=== PATIENT | male | born 1990 | race Caucasian/White ===

== ENCOUNTER 2023-03-27 10:47 | Outpatient (AMB) | payer OTHER, SELFPAY ==
--- NOTE | 2023-03-27 10:53 | A.OFFPC_ITS ---
Vital Signs 03/27/23 10:59 Height 5 ft 11 in Weight 217 lb BMI 30.3 BP 110/72 Blood Pressure Location Lt brachial Position Sitting Pulse 87 Pulse Source Pulse Oximeter Pulse Oximetry (%) 97 Oxygen Delivery Method Room Air Intake Visit Reasons: New Patient Intake Note: Patient is a new patient here to establish care for Lung issues, Chronic Back and left hip pain, Sleep [place]?, Left knee pain, Skin issues . Transferring care from Dr Ware ([facility]). Medical records have been requested and have received. Requesting for sleep study, lab order, Pulmonary referral. 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: Not Required per policy Accompanied by: Self / Same As Patient Allergies No Known Allergies Allergy (Verified 04/04/23 14:29) Medication List - Last Reconciled 04/04/23 by Bryce Brownlee MD albuterol sulfate 90 mcg/actuation 0 mcg inhalation Tobacco use date assessed: 03/27/23 Dental Screening Dental Screen Date: 03/27/23 Did you have a dental visit in the last 12 months?: Yes Did you have a dental problem in the last 6 months where you did not have access to dental care?: No Was dental information given to patient?: Patient has dentist HPI New Patient HPI Details 32-year-old male presents to the office to discuss his chronic medical conditions. 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 He has multiple complaints. He is transferring his care from the [place]. Patient is having low back pain which is not been resolved for a long time. Pain is present in the lower back. 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 These include muscle relaxants. No urinary incontinence. At times patient is having unexpected spells of cough and shortness of breath. No sputum. He is worried he may have ingested some chemicals during his deployment. Patient also wonders if he has sleep apnea and would like to get a sleep study done. Does report symptoms of fatigue when he wakes up in the morning, restless sleep at night. 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 1. Little interest or pleasure in doing things: not at all 2. Feeling down, depressed, or hopeless: not at all 3. Trouble falling or staying asleep, or sleeping too much: not at all 4. Feeling tired or having little energy: not at all 5. Poor appetite or overeating: not at all 6. Feeling bad about yourself - or that you are a failure or have let yourself or your family down: not at all 7. Trouble concentrating on things, such as reading the newspaper or watching television: not at all 8. Moving or speaking so slowly that other people could have noticed. Or the opposite - being so fidgety or restless that you have been moving around a lot more than usual: not at all 9. Thoughts that you would be better off or of hurting yourself in some way: not at all Total score: 0 Depression Screening Interpretation: Negative Source: Developed by Drs. Lencho Pugh, Janki Anderson, Roger Perez and colleagues, with an educational ronald from [employer]. Thrive Questionnaire Date Thrive assessed: 03/27/23 I am a: Patient What is your living situation today?: I have a steady place to live Within the past 12 months, did the food you bought not last and you didn't have the money to get more?: Never true Within the past 12 months, did you worry whether your food would run out before you got money to buy more?: Never true Do you have trouble paying for medicines?: No Do you have trouble getting transportation to medical appointments?: No Do you have trouble paying your heating and electricity bill?: No Do you have trouble taking care of your child, family member or friend?: No Do you have trouble with day-to-day activities such as bathing, preparing meals, shopping, managing finances, etc.?: Yes (due to hip pain) Are you currently unemployed and looking for a job?: No Are you interested in more education?: No Currently or been in a relationship where the following occur: no concerns reported AUDIT C Alcohol Use Questionnaire (AUDIT-C) 1. How often do you have a drink containing alcohol?: Never Total Score: 0 BRANDEE-7 AMB Questionnaire BRANDEE-7 Date BRANDEE - 7 assessed: 03/27/23 Feeling nervous, anxious, or on edge: 0 = Not at all Not being able to stop or control worryin = Not at all Worrying too much about different things: 0 = Not at all Trouble relaxin = Not at all Being so restless that it is hard to sit still: 0 = Not at all Becoming easily annoyed or irritable: 0 = Not at all Feeling afraid as if something awful might happen: 0 = Not at all Total BRANDEE-7 score (0-4 normal; 5-9 mild; 10-14 moderate; 15-21 severe): 0 Source: Developed by Drs. Lencho Pugh, Janki Anderson, Roger Perez and colleagues, with an educational ronald from [employer]. Physical exam (Primary Care) Vital Signs: Last Vital Signs Pulse 87 03/27/23 10:59 BP 110/72 03/27/23 10:59 Pulse Ox 97 03/27/23 10:59 Oxygen Delivery Method Room Air 03/27/23 10:59 BMI result Body Mass Index 30.3 Tobacco/Smoking Status: Tobacco use Status Tobacco use date assessed 03/27/23 03/27/23 11:10 Patient Tobacco Use Status Current everyday Tobacco 03/27/23 11:10 Tobacco use type Smokeless Tobacco 03/27/23 11:10 e-Cigarette/Vaping Use Never Used 03/27/23 11:10 PHQ-9: PHQ-9 Score PHQ-9: Total score 0 03/27/23 11:10 Depression Screening Interpretation: Negative Thrive Assessment: Date of Thrive Assessment Date Thrive assessed 03/27/23 03/27/23 11:10 Currently or been in a relationship where the following occur: no concerns reported Const General: cooperative, healthy appearing and comfortable HENMO Head: Yes normal to inspection and Yes atraumatic Eyes General: appearance normal, both eyes and all related structures Neck Neck: Yes normal visual inspection and Yes full ROM Chest Chest palpation & inspection: normal inspection of the chest Resp Effort & Inspection: normal respiratory effort Auscultation: clear to auscultation bilaterally Cardio Jugular venous distension: no JVD Palpation: normal PMI Rate: regular rate Heart sounds: S1 normal heart sound present and S2 normal heart sound present GI Palpation (GI): Soft to palpation and No hepatosplenomegaly present Extrem General: Yes normal to inspection and Yes full ROM Assessment and Plan Assessment & Plan (1) Chronic lower back pain: Code(s): M54.50 - Low back pain, unspecified; G89.29 - Other chronic pain Plan: Physical therapy has been requested. Patient is declining to take any medications. (2) Obstructive sleep apnea: Code(s): G47.33 - Obstructive sleep apnea (adult) (pediatric) Plan: A sleep study has been scheduled. (3) Shortness of breath: Code(s): R06.02 - Shortness of breath Plan: Pulmonary consult has been requested. Coding Level of Care Code New Pt Level 4 (51715) Diagnoses Chronic lower back pain M54.50; G89.29 Obstructive sleep apnea G47.33 Shortness of breath R06.02
[2023-03-27 10:59] VITALS: BP 110/72; PULSE 87; O2SAT 97; BMI 30.3
== END 2023-03-27 11:23 | disposition home or self-care (01) ==
PROVIDERS: PCP Internal Medicine; Visit Provider Internal Medicine
DX: M54.50 Low back pain, unspecified (principal); G89.29 Other chronic pain; G47.33 Obstructive sleep apnea (adult) (pediatric); R06.02 Shortness of breath
CPT/HCPCS: 99204

== ENCOUNTER 2023-04-23 14:52 | Outpatient (AMB) | payer OTHER, SELFPAY ==
[2023-04-23 15:07] VITALS: BP 124/78; PULSE 87; O2SAT 97; BMI 30.7
--- NOTE | 2023-04-23 15:07 | A.OFFVIS_ITS ---
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 During his the service, he was [facility] [place] in [place]. He went back and forth from 2007 to 2011 . During his service in [place] he was exposed to lot of, smoke and dust. In year 2012 he was mainly stationed in [place]. Discharge from the service he came back to [facility] in 2012. He also started experiencing shortness of breath on exertion,. He had pulmonary function test a few times through the [facility], the last complete PFT was in 2017. He was told that he has mild obstructive airway disorder. He was prescribed albuterol HFA which he used once. In a while but it did not help much He has continue to experience shortness of breath on any exertion like running or climbing stairs. He claims that with exertion he also has some wheezing. He also has mild nasal congestion but no postnasal drip per sneezing. He is also having chronic back pain, and has had physical treatment, as well as anti-inflammatory meds. He has difficulty in sleeping at night and is being evaluated for sleep apnea, home sleep study scheduled to be done in the neck is 2 weeks. 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 Cognitive needs: No Hearing needs: No Vision needs: No Review of Systems Const All systems reviewed & are unremarkable except as noted in HPI and below Eyes Reports no additional complaints ENT Reports nasal congestion (Mild off and on) Card Denies chest pain, Denies syncope, Denies irregular heart rhythm and Denies leg edema Resp Reports as per HPI GI Reports no additional complaints Reports no additional complaints Musc Reports back pain Skin/Breast Reports system reviewed and no additional complaints, except as documented Neuro Reports no additional complaints and Denies syncope Psych Reports no additional complaints Endo Reports no additional complaints Physical Exam Vital Signs: Last Vital Signs Pulse 87 04/23/23 15:07 BP 124/78 04/23/23 15:07 Pulse Ox 97 04/23/23 15:07 Oxygen Delivery Method Room Air 04/23/23 15:07 BMI result Body Mass Index 30.7 Slightly overweight otherwise looks in good general health Const General: healthy appearing, comfortable, no acute distress, alert and awake Orientation/consciousness: patient oriented x3 HEENT Head: Yes normal to inspection General nose exam: No nasal polyps present and No nasal discharge present Face and sinus: Yes sinuses nontender Mouth: oropharynx normal Throat: Yes posterior oropharynx normal Eyes General: appearance normal, both eyes and all related structures Neck Neck: Yes normal visual inspection, Yes no lymphadenopathy, Yes trachea midline and Yes no JVD Thyroid: Thyroid normal Chest Chest palpation & inspection: normal inspection of the chest, normal palpation of entire chest wall and no tenderness Resp Other: Percussion note is resonant, no wheezes or crepitations are heard. Cardio Palpation: normal PMI Rate: regular rate Rhythm: regular rhythm Heart sounds: no gallops and no murmurs Peripheral pulses: Peripheral pulses 2+ throughout GI Palpation (GI): Soft to palpation, nontender, No hepatosplenomegaly present and no masses Auscultation: normal bowel sounds Back/Spine/Pelvis Thoracic/Lumbar Spine: thoracic and lumbar spine normal to inspection and thoraco-lumbar ROM limited Skin General skin exam: no rashes or lesions noted Neuro General: patient oriented x3 and no focal motor deficits Cranial nerves: Yes CN's II-XII intact bilaterally Extrem General: Yes normal to inspection, Yes no clubbing, cyanosis or edema and Yes no calf tenderness Psych Appearance: grossly normal and well kempt Speech and movement: Normal speech and movement present Results Reviewed Results Reviewed: Records sent from the [facility] outpatient, were reviewed. I did not see report of any pulmonary function test or chest x-ray. Assessment & Plan Assessment & Plan (1) Asthma: Comment: I think he probably has exercise induced bronchial asthma. Trying to get hold of his last PULMONARY FUNCTION TEST, PERFORMED IN 1 OF THE RESPIRATORY LABS IN [facility]. HE IS GOING TO TRY TO GET THE COPY. OF THE REPORT AND DELIVER TO US. IF NOT AVAILABLE THEN I WOULD LIKE TO DO A COMPLETE PULMONARY FUNCTION. TEST HERE IN OUR LAP [place]: STARTED HIM ON A LOW-DOSE OF SYMBICORT 80-4.5 2 PUFFS B.I.D. MAY USE ALBUTEROL HFA 2 PUFFS Q 4-6 HOURS P.R.N. ONLY IF THERE IS SOME WHEEZING. Code(s): J45.909 - Unspecified asthma, uncomplicated Medications: New budesonide-formoterol 80-4.5 mcg/actuation (Symbicort) 2 puffs inhalation Q12H 30 days 10.2 grams 2RF ASTHMA Coding Level of Care Code New Pt Level 4 (03715) Diagnoses Asthma J45.909
== END 2023-04-23 15:50 | disposition home or self-care (01) ==
PROVIDERS: PCP Internal Medicine; Visit Provider Internal Medicine
DX: J45.909 Unspecified asthma, uncomplicated (principal)
CPT/HCPCS: 99204

== ENCOUNTER → 2023-04-23 14:52 | Outpatient (BNVA) | payer OTHER, SELFPAY | PROVIDERS: PCP Internal Medicine; Visit Provider Internal Medicine ==

== ENCOUNTER → 2023-04-29 19:30 | Outpatient (REF) | payer OTHER, SELFPAY | LOC: HO.SL 19:30 | PROVIDERS: PCP Internal Medicine; Visit Provider Internal Medicine | DX: G47.33 Obstructive sleep apnea (adult) (pediatric) (principal) | CPT/HCPCS: 95810 ==

== ENCOUNTER → 2023-04-29 21:43 | Outpatient (BNV) | payer OTHER, SELFPAY | PROVIDERS: PCP Internal Medicine; Visit Provider Internal Medicine | DX: G47.33 Obstructive sleep apnea (adult) (pediatric) (principal) | CPT/HCPCS: 95810 ==

== ENCOUNTER 2023-06-05 10:09 | Outpatient (AMB) | payer OTHER, SELFPAY ==
--- NOTE | 2023-06-05 10:19 | MHC.PC.OV ---
Vital Signs 06/05/23 10:21 Height 5 ft 11 in Weight 220 lb 4 oz BMI 30.7 BP 128/72 Blood Pressure Location Lt brachial Position Sitting Pulse 88 Pulse Source Pulse Oximeter Pulse Oximetry (%) 97 Oxygen Delivery Method Room Air Intake Visit Reasons: 1mth f/u Intake Note: Patient is here to follow up on Asthma. 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 per policy Accompanied by: Self / Same As Patient Allergies No Known Allergies Allergy (Verified 06/10/23 06:25) Medication List - Last Reconciled 06/10/23 by Bryce Brownlee MD albuterol sulfate 90 mcg/actuation 0 mcg inhalation amoxicillin 500 mg PO TID budesonide-formoterol 80-4.5 mcg/actuation (Symbicort) 2 puffs inhalation Q12H 30 days Tobacco use date assessed: 06/05/23 Dental Screening Dental Screen Date: 06/05/23 Did you have a dental visit in the last 12 months?: Yes Did you have a dental problem in the last 6 months where you did not have access to dental care?: No Was dental information given to patient?: Patient has dentist HPI 1mth f/u HPI Details 32-year-old male presents to the office to discuss his chronic medical conditions. He is compliant with medications and reporting no side effects. Able to function and do all activities of daily living. Currently he is only taking the inhaler. His back pain symptoms are under reasonable control without medications. He is continuing to do his stretching exercises. 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 Physical exam (Primary Care) Vital Signs: Last Vital Signs Pulse 88 06/05/23 10:21 BP 128/72 06/05/23 10:21 Pulse Ox 97 06/05/23 10:21 Oxygen Delivery Method Room Air 06/05/23 10:21 Care Plan Goal for BP management: Blood pressure is in range. BMI result Body Mass Index 30.7 Tobacco/Smoking Status: Tobacco use Status Tobacco use date assessed 06/05/23 06/05/23 10:26 Patient Tobacco Use Status Current everyday Tobacco ( 06/05/23 10:26 chewing tobacco) Tobacco use type 06/05/23 10:26 e-Cigarette/Vaping Use Never Used 06/05/23 10:26 Are you ready to quit: No Tobacco cessation counseling provided: No Thrive Assessment: Date of Thrive Assessment Date Thrive assessed 03/27/23 06/05/23 10:26 Const General: cooperative and healthy appearing Nutritional Appearance: well nourished Orientation/consciousness: patient oriented x3 Limitations: no limitations HENMT Head: Yes normal to inspection Eyes General: appearance normal, both eyes and all related structures Neck Neck: Yes normal visual inspection Chest Chest palpation & inspection: normal palpation of entire chest wall Resp Effort & Inspection: normal respiratory effort Neuro General: patient oriented x3 Assessment and Plan Assessment & Plan (1) Tobacco use disorder: Code(s): F17.200 - Nicotine dependence, unspecified, uncomplicated (2) Obstructive sleep apnea: Code(s): G47.33 - Obstructive sleep apnea (adult) (pediatric) Plan: Continue the CPAP. (3) Chronic lower back pain: Code(s): M54.50 - Low back pain, unspecified; G89.29 - Other chronic pain Plan: Condition is stable. Physical therapy if needed. Coding Level of Care Code Est Pt Level 4 (96448) Diagnoses Tobacco use disorder F17.200 Obstructive sleep apnea G47.33 Chronic lower back pain M54.50; G89.29
[2023-06-05 10:21] VITALS: BP 128/72; PULSE 88; O2SAT 97; BMI 30.7
== END 2023-06-05 11:10 | disposition home or self-care (01) ==
PROVIDERS: PCP Internal Medicine; Visit Provider Internal Medicine
DX: F17.200 Nicotine dependence, unspecified, uncomplicated (principal); G47.33 Obstructive sleep apnea (adult) (pediatric); M54.50 Low back pain, unspecified; G89.29 Other chronic pain
CPT/HCPCS: 99214

== ENCOUNTER 2023-06-23 09:16 | Outpatient (AMB) | payer OTHER, SELFPAY ==
[2023-06-23 10:07] VITALS: BP 102/60; PULSE 81; O2SAT 97; BMI 31.7
--- NOTE | 2023-06-23 10:07 | A.OFFVIS_ITS ---
Intake Vital Signs 06/23/23 10:07 Height 5 ft 11 in Weight 227 lb BMI 31.7 BP 102/60 Blood Pressure Location Lt brachial Position Sitting Pulse 81 Pulse Source Pulse Oximeter Pulse Oximetry (%) 97 Oxygen Delivery Method Room Air Intake Visit Reasons: same day pft Intake Note: pt is here for follow up and same pft, inhaler helps only using it prn on bad days. 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 Which is not very frequent However he does get cough and shortness of breath on doing any physical work. He denies. Any nasal congestion or postnasal drip His the shortness of breath and wheezing is mainly related to physical exertion. He does not identify any particular triggers. 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 Cognitive needs: No Hearing needs: No Vision needs: No Review of Systems Const All systems reviewed & are unremarkable except as noted in HPI and below Eyes Reports no additional complaints ENT Reports nasal congestion (Mild off and on) Card Denies chest pain, Denies syncope, Denies irregular heart rhythm and Denies leg edema Resp Reports as per HPI GI Reports no additional complaints Reports no additional complaints Musc Reports back pain Skin/Breast Reports system reviewed and no additional complaints, except as documented Neuro Reports no additional complaints and Denies syncope Psych Reports no additional complaints Endo Reports no additional complaints Physical Exam Vital Signs: Last Vital Signs Pulse 81 06/23/23 10:07 BP 102/60 06/23/23 10:07 Pulse Ox 97 06/23/23 10:07 Oxygen Delivery Method Room Air 06/23/23 10:07 BMI result Body Mass Index 31.7 Slightly overweight otherwise looks in good general health Const General: healthy appearing, comfortable, no acute distress, alert and awake Orientation/consciousness: patient oriented x3 HEENT Head: Yes normal to inspection General nose exam: No nasal polyps present and No nasal discharge present Face and sinus: Yes sinuses nontender Mouth: oropharynx normal Throat: Yes posterior oropharynx normal Eyes General: appearance normal, both eyes and all related structures Neck Neck: Yes normal visual inspection, Yes no lymphadenopathy, Yes trachea midline and Yes no JVD Thyroid: Thyroid normal Chest Chest palpation & inspection: normal inspection of the chest, normal palpation of entire chest wall and no tenderness Resp Other: Percussion note is resonant, no wheezes or crepitations are heard. Cardio Palpation: normal PMI Rate: regular rate Rhythm: regular rhythm Heart sounds: no gallops and no murmurs Peripheral pulses: Peripheral pulses 2+ throughout GI Palpation (GI): Soft to palpation, nontender, No hepatosplenomegaly present and no masses Auscultation: normal bowel sounds Back/Spine/Pelvis Thoracic/Lumbar Spine: thoracic and lumbar spine normal to inspection and thoraco-lumbar ROM limited Skin General skin exam: no rashes or lesions noted Neuro General: patient oriented x3 and no focal motor deficits Cranial nerves: Yes CN's II-XII intact bilaterally Extrem General: Yes normal to inspection, Yes no clubbing, cyanosis or edema and Yes no calf tenderness Psych Appearance: grossly normal and well kempt Speech and movement: Normal speech and movement present Results Reviewed Results Reviewed: Pulmonary function test, shows mild reduction in FEV1 and moderate reduction in FEF 25-75 , with marked improvement after bronchodilators. TLC and DLCO normal, C/W Bronchial asthma Assessment & Plan Assessment & Plan (1) Asthma: Comment: PULMONARY FUNCTION TEST CONFIRMS THAT HE HAS MILD TO MODERATE OBSTRUCTIVE PATTERN WHICH IMPROVES AFTER BRONCHODILATOR THERAPY. THE RESULTS ARE CONSISTENT WITH BRONCHIAL ASTHMA. IN HIS CASE MOST LIKELY BRONCHIAL ASTHMA IS RELATED TO EXERCISE AND, UNSPECIFIED TRIGGER. TX: DISCUSSED WITH HIM IN DETAIL. ADVISE THAT HE SHOULD STAY ON LIGHT DOES SYMBICORT( 80-4.5) 2 PUFFS B.I.D. REGULARLY MAY USE ALBUTEROL HFA 2 PUFFS Q 4-6 HOURS P.R.N. ONLY IF THERE IS SOME WHEEZING. WILL RECHECK IN 4 MONTHS. Code(s): J45.909 - Unspecified asthma, uncomplicated Medications: Refilled budesonide-formoterol 80-4.5 mcg/actuation (Symbicort) 2 puffs inhalation Q12H 30 days 10.2 grams 3RF ASTHMA Coding Level of Care Code Est Pt Level 3 (62287) Diagnoses Asthma J45.909
== END 2023-06-23 10:49 | disposition home or self-care (01) ==
PROVIDERS: PCP Internal Medicine; Visit Provider Internal Medicine
DX: J45.909 Unspecified asthma, uncomplicated (principal)
CPT/HCPCS: 94060; 94727; 94729; 99213

== ENCOUNTER 2023-06-23 09:18 | Outpatient (REF) | payer OTHER, SELFPAY ==
--- NOTE | 2023-06-23 10:06 | PFT_ITS ---
INDICATION: Asthma. SPIROMETRY: FEV1 to FVC of 65% with an FEV1 of 3.61 L, which is 80% predicted and FVC of 5.54 L, which is 99% predicted. Post bronchodilators, there was a significant improvement of the FVC by 19%. The maximum voluntary ventilation 55% predicted. LUNG VOLUMES: Total lung capacity 79% predicted with an expiratory reserve volume of 9% predicted. DIFFUSION CAPACITY: DLCO of 121% predicted. COMPARISONS: None. INTERPRETATION: There is an obstructive ventilatory defect consistent with mild COPD. Likely consistent with asthma COPD overlap syndrome with his history. Does have significant response to bronchodilators noted. Also a moderate decrease in the maximum voluntary ventilation secondary to likely deconditioning, although cannot rule out neuromuscular condition. Lung volumes demonstrate a mild restrictive ventilatory defect consistent with mild restrictive lung disease. There is a normal diffusion capacity. Clinical correlation warranted. MD MARTÍNEZ Ruiz/MODL / [id number]
== END 2023-06-23 09:19 | disposition home or self-care (01) ==
LOC: HO.RESP 09:18
PROVIDERS: PCP Internal Medicine; Visit Provider Internal Medicine
DX: J45.909 Unspecified asthma, uncomplicated (principal)
CPT/HCPCS: 94010; 94727; 94729

== ENCOUNTER 2023-07-04 12:00 | Outpatient (RCR) | payer OTHER, SELFPAY ==
--- NOTE | 2023-05-16 11:46 | MHC.PT.EP ---
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 OBJECTIVE FINDINGS: (+) PELVIC ASYMM W UPPER TRUNK COMPENSATION, TIGHT HIP TISSUES Rt > Lt; DECR STRENGTH / (+) ATROPHY LEFT GLUTE, (+) TISSUE TIGHTNESS IN THORACOLUMBAR PS AND Rt QL MM; AND FLUCTUATING PAIN IN HIS LEFT GLUTE/ SI Jt. FUNCTIONALLY, THE Pt HAS ALTERED HIS FITNESS ROUTINE, DECR SITTING TOLERANCE, AND LEFT LE WEAKNESS W FULL WT BEARING (IE, WHEN HIKING AND STEPPING OVER OBJECTS W RT LE). THE Pt WOULD BENEFIT FROM PT TO ADDRESS THE ABOVE FINDINGS , DEV A HEP/ SELF-SX MGMT PROGRAM, AND IMPROVE HIS FUNCTIONAL INDEPENDENCE. Frequency and Duration: The patient will be seen 2 x WK x 6 WKS Short Term Goals: *Pt'S Lt LS PAIN DECR TO 2-3/10 W REG ADLs *IMPROVE RIGOBERTO HIP FLEXIB *INCR AWARENESS OF LEFT GLUTE COMPLEX W MORE EFFICIENT ACTIV TO PROMOTE PELVIC SYMM *Pt INDEP W POSTURAL SELF-CORRECT IN VARIED POSITIONS *INITIATE HEP Rubber Washer Goals: Pt INDEP W SELF-CORRECT POSTURE AND DEMON IMPROVED, MORE EFFICIENT BODY MECH W SIMUL ADLs/ WORK TASKS *Pt WILL IMPROVE LUMBOPELVIC/ LEs STRENGTH TO AT LEAST 5-/5 *Pt RESUME REG ADLs AND FITNESS ROUTINE EVIDENT W IMPROVED OSWESTRY SCORE (AT EVAL 50 ) *Pt INDEP W PROGR HEP AND SELF-SX MGMT TECHN Treatment Plan: Modalities to reduce pain, spasms and effusion. Manual therapy to restore motion and function. Therapeutic exercise to improve strength and flexibility. Neuromuscular re-education for posture and balance. Therapeutic activities to return to functional activities of daily living. Electronically signed by: KELLEE SMILEY,PT Please sign and return to therapist. Thank you for your referral.
--- NOTE | 2023-08-27 13:28 | MHC.PT.DC ---
[facility] Office [place] Office [place] Office [address] Hallie Nunn [address] [phone] F: [phone] F: [phone] F: [phone] F: [phone] Physical Therapy Discharge Report Diagnosis: CHRONIC LBP INSUR AUTH 90 CONSECUTIVE DAYS Date of Surgery: Date of Evaluation: 05/16/23 Date of Discharge: 08/27/23 Treatments to Date: 8 Cancellations to Date: 2 No Shows to Date: 2 Discharge Status: Improved Function Independent with HEP Recommend MD Follow-up Discharge Summary: RICHARD BENEFITTED FROM PT TO ADDRESS POSTURE, DEV A HEP FOCUSED ON LUMBOPELVIC STAB AND NEUTRAL SPINE . THE Pt WAS CHALLENGED W GLUTE ACTIVATION, ESPEC LEFT HIP COMPLEX. HIS SXS WERE MORE LOCALIZED TO Lt HIP Jt (? LABRAL INVOLVEMENT VS Jt), REDUCED SXS FROM LS ORIGIN-> THE Pt IS GOING TO CONTACT HIS MD RE Lt HIP SXS AND ? ORTHO/ DIAGN. HE IS D/C FROM PT W A THOROUGH HEP. Electronically signed by: KELLEE SMILEY,PT Please sign and return to therapist. Thank you for your referral.
== END 2023-08-27 13:31 | disposition home or self-care (01) ==
LOC: HO.PT 12:00
PROVIDERS: PCP Internal Medicine; Visit Provider Internal Medicine
DX: M54.50 Low back pain, unspecified (principal); G89.29 Other chronic pain
CPT/HCPCS: 97035; 97110; 97140; 97162

== ENCOUNTER 2023-07-24 09:21 | Outpatient (AMB) | payer OTHER, SELFPAY ==
--- NOTE | 2023-07-24 09:56 | MHC.PC.OV ---
Vital Signs 07/24/23 09:58 Height 5 ft 11 in Weight 223 lb 6 oz BMI 31.2 BP 132/74 Blood Pressure Location Lt brachial Position Sitting Pulse 42 L Pulse Source Pulse Oximeter Pulse Oximetry (%) 98 Oxygen Delivery Method Room Air Intake Visit Reasons: Left Hip Pain Intake Note: Patient is here today for left hip pain. Requesting for order for MRI Customer Contact Sales Associate Required: No Aluminum Pourer: Not Required per policy Accompanied by: Self / Same As Patient Allergies No Known Allergies Allergy (Verified 07/24/23 09:57) Tobacco use date assessed: 07/24/23 Dental Screening Dental Screen Date: 07/24/23 Did you have a dental visit in the last 12 months?: Yes Did you have a dental problem in the last 6 months where you did not have access to dental care?: No Was dental information given to patient?: Patient has dentist HPI Left Hip Pain HPI Details 33-year-old male presents to the office to discuss his chronic medical conditions. Patient continues to have left hip pain. Physical therapy has not relieved any of the symptoms. Pain is around the greater trochanter area and encircling it. He is able to walk and bear weight without any difficulty. The pain is constant with no relieving factors. 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 Lencho Pugh, Janki Anderson, Roger Perez and colleagues, with an educational ronald from [employer]. Physical exam (Primary Care) Vital Signs: Last Vital Signs Pulse 42 L 07/24/23 09:58 BP 132/74 07/24/23 09:58 Pulse Ox 98 07/24/23 09:58 Oxygen Delivery Method Room Air 07/24/23 09:58 BMI result Body Mass Index 31.2 Tobacco/Smoking Status: Tobacco use Status Tobacco use date assessed 07/24/23 07/24/23 10:08 Patient Tobacco Use Status Current everyday Tobacco ( 07/24/23 09:56 chewing tobacco) Tobacco use type 06/05/23 15:19 e-Cigarette/Vaping Use Never Used 07/24/23 09:56 Thrive Assessment: Date of Thrive Assessment Date Thrive assessed 03/27/23 07/24/23 09:56 Const General: cooperative and healthy appearing Nutritional Appearance: well nourished Orientation/consciousness: patient oriented x3 Limitations: no limitations HENMT Head: Yes normal to inspection Eyes General: appearance normal, both eyes and all related structures Neck Neck: Yes normal visual inspection Chest Chest palpation & inspection: normal palpation of entire chest wall Resp Effort & Inspection: normal respiratory effort Neuro General: patient oriented x3 Extrem Other: Left hip: Pain and tenderness over the greater trochanter. Full range of motion at the hip including abduction and adduction. Assessment and Plan Assessment & Plan (1) Osteoarthritis of left hip: Code(s): M16.12 - Unilateral primary osteoarthritis, left hip Plan: Patient is having unrelenting pain in the left hip. This is affecting his quality of life. An MRI of the hip is necessary to study the articulation and the nature of the greater trochanter. Order has been placed. Orders: Orders MR hip LT w con 07/24/23 M16.9 - Osteoarthritis of hip, unspecified Coding Level of Care Code Est Pt Level 4 (17376) Diagnoses Osteoarthritis of left hip M16.12
[2023-07-24 09:58] VITALS: BP 132/74; PULSE 42; O2SAT 98; BMI 31.2
== END 2023-07-24 10:32 | disposition home or self-care (01) ==
PROVIDERS: PCP Internal Medicine; Visit Provider Internal Medicine
DX: M16.12 Unilateral primary osteoarthritis, left hip (principal)
CPT/HCPCS: 99214

== ENCOUNTER 2023-10-22 10:39 | Outpatient (REF) | payer OTHER, SELFPAY ==
--- NOTE | ~2023-10-22 | XR_ITS ---
EXAMINATION: XR HIP, LEFT CLINICAL INFORMATION: Unilateral primary osteoarthritis, left hip COMPARISON: None available. TECHNIQUE: Two views of the left hip. FINDINGS: No fracture. Alignment is anatomic. Hip joint space is maintained. Soft tissues are unremarkable. XR/XR hip LT min 2V IMPRESSION: No bony abnormality.
== END 2023-10-22 10:40 | disposition home or self-care (01) ==
LOC: HO.XRAY 10:39
PROVIDERS: PCP Internal Medicine; Visit Provider Internal Medicine
DX: M16.12 Unilateral primary osteoarthritis, left hip (principal)
CPT/HCPCS: 73502

== ENCOUNTER 2024-12-07 09:31 | Outpatient (REF) | payer OTHER, SELFPAY ==
--- NOTE | ~2024-12-07 | XR_ITS ---
EXAMINATION: XR CHEST 2 VIEWS HISTORY: J45.909 - Unspecified asthma, uncomplicated COMPARISON: There are no prior studies for comparison. FINDINGS: PA and lateral views of the chest are submitted. The lungs are expanded and clear. There is no pleural effusion, pneumothorax, or pulmonary vascular congestion. The heart is normal in size. The bones are intact. XR/XR chest 2V IMPRESSION: Normal examination of the chest. Electronically signed by: Lencho Canseco MD 12/07/2024 03:32 PM EDT
[2024-12-07 10:31] LABS: MANUAL DIFF FLAG NO
[2024-12-07 10:46] LABS: Basophils Absolute Auto 0.1 X10*3/uL (0.0-0.2); Basophils Percent Auto 0.9 % (0-2); Eosinophils Absolute Auto 0.1 X10*3/uL (0.0-0.4); Eosinophils Percent Auto 1.5 % (0-4); Hematocrit 46.7 % (42.0-52.0); Hemoglobin 16.6 g/dl (14.0-18.0); Imm Gran Abs Auto 0.02 X10*3/uL (0.00-0.03); Imm Gran Pct Auto 0.3 % (0.0-0.4); Lymphocytes Absolute Auto 1.9 X10*3/uL (1.2-4.9); Lymphocytes Percent Auto 33.2 % (20-40); Mean Corpuscular HGB Conc 35.5 g/dl (31.0-36.0); Mean Corpuscular Hemoglobin 29.3 pg (27.0-33.0); Mean Corpuscular Volume 82.5 fL (80.0-98.0); Mean Platelet Volume 10.8 fL (9.4-12.4); Monocytes Absolute Auto 0.4 X10*3/uL (0.1-1.2); Monocytes Percent Auto 7.6 % (2-11); Neutrophils Absolute Auto 3.3 x10*3/uL (2.0-8.3); Neutrophils Percent Auto 56.5 % (45-73); Platelet Count 144 X10*3/uL (160-400); Red Blood Count 5.66 X10*6/uL (4.60-5.80); Red Cell Distribution Width 12.6 % (11.0-16.0); White Blood Count 5.8 X10*3/uL (4.8-10.8)
[2024-12-08 07:38] LABS: Immunoglobulin E 14 kU/L (<OR=114)
== END 2024-12-07 09:32 | disposition home or self-care (01) ==
LOC: HO.XRAY 09:31
PROVIDERS: PCP Internal Medicine; Referring Provider Internal Medicine; Visit Provider Internal Medicine
DX: J45.909 Unspecified asthma, uncomplicated (principal)
CPT/HCPCS: 36415; 71046; 82785; 85025; 94010

== ENCOUNTER 2024-12-07 09:31 | Outpatient (AMB) | payer OTHER, SELFPAY ==
[2024-12-07 09:35] VITALS: BP 122/82; PULSE 80; O2SAT 100; BMI 32.3
--- NOTE | 2024-12-07 09:35 | A.OFFVIS_ITS ---
Vital Signs 12/07/24 09:35 Height 5 ft 11 in Weight 231 lb 7.766 oz BMI 32.3 BP 122/82 Blood Pressure Location Lt brachial Position Sitting Pulse 80 Pulse Source Pulse Oximeter Pulse Oximetry (%) 100 Oxygen Delivery Method Room Air Intake Visit Reasons: Shortness of breath Intake Note: pt is here for short of breath mostly with exertion, wheezing, and even using both inhalers with no difference. 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 He responded very well to Symbicort 80-4.52 puffs b.i.d. and albuterol only p.r.n.. Subsequently Symbicort has been changed to Wixela by the [place] outpatient, and the doses actually 500-50 1 inhalation b.i.d.. He does not like to use Wixela, he prefers to go back to Symbicort. He denies any sudden attacks of wheezing. But when he is at work and has run climb stairs he gets short of breath. This is affecting his. job to some extent He has had no respiratory infection, He does not smoke. Has very little cough or expectoration. 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 Cognitive needs: No Hearing needs: No Vision needs: No Review of Systems Const All systems reviewed & are unremarkable except as noted in HPI and below Eyes Reports no additional complaints ENT Reports nasal congestion (Mild off and on) Card Denies chest pain, Denies syncope, Denies irregular heart rhythm and Denies leg edema Resp Reports as per HPI GI Reports no additional complaints Reports no additional complaints Musc Reports back pain Skin/Breast Reports system reviewed and no additional complaints, except as documented Neuro Reports no additional complaints and Denies syncope Psych Reports no additional complaints Endo Reports no additional complaints Physical Exam Vital Signs: Last Vital Signs Pulse 80 12/07/24 09:35 BP 122/82 12/07/24 09:35 Pulse Ox 100 12/07/24 09:35 Oxygen Delivery Method Room Air 12/07/24 09:35 BMI result Body Mass Index 32.3 Slightly overweight otherwise looks in good general health Const General: healthy appearing, comfortable, no acute distress, alert and awake Orientation/consciousness: patient oriented x3 HEENT Head: Yes normal to inspection General nose exam: No nasal polyps present and No nasal discharge present Face and sinus: Yes sinuses nontender Mouth: oropharynx normal Throat: Yes posterior oropharynx normal Eyes General: appearance normal, both eyes and all related structures Neck Neck: Yes normal visual inspection, Yes no lymphadenopathy, Yes trachea midline and Yes no JVD Thyroid: Thyroid normal Chest Chest palpation & inspection: normal inspection of the chest, normal palpation of entire chest wall and no tenderness Resp Other: Percussion note is resonant, no wheezes or crepitations are heard. Cardio Palpation: normal PMI Rate: regular rate Rhythm: regular rhythm Heart sounds: no gallops and no murmurs Peripheral pulses: Peripheral pulses 2+ throughout GI Palpation (GI): Soft to palpation, nontender, No hepatosplenomegaly present and no masses Auscultation: normal bowel sounds Back/Spine/Pelvis Thoracic/Lumbar Spine: thoracic and lumbar spine normal to inspection and thoraco-lumbar ROM limited Skin General skin exam: no rashes or lesions noted Neuro General: patient oriented x3 and no focal motor deficits Cranial nerves: Yes CN's II-XII intact bilaterally Extrem General: Yes normal to inspection, Yes no clubbing, cyanosis or edema and Yes no calf tenderness Psych Appearance: grossly normal and well kempt Speech and movement: Normal speech and movement present Office Procedures Spirometry Testing Spirometry Comments: Spirometry done in the offic, Dr. Carbajal has the results results scanned to his chart. 02083- Spirometry Results Reviewed Results Reviewed: SPIROMETRY 2022 FVC = 89 % 92 % FEV1= 70 % 67 % FEF 25-75 = 44 % 36 % Assessment & Plan Assessment & Plan (1) Asthma: Comment: PULMONARY FUNCTION TEST IN 2022 CONFIRMED THAT HE HAS MILD TO MODERATE OBSTRUCTIVE PATTERN WHICH IMPROVES AFTER BRONCHODILATOR THERAPY. THE RESULTS WERE CONSISTENT WITH BRONCHIAL ASTHMA. IN HIS CASE MOST LIKELY BRONCHIAL ASTHMA IS RELATED TO EXERCISE AND, UNSPECIFIED TRIGGERS. Code(s): J45.909 - Unspecified asthma, uncomplicated Category: Medical Plan: TX: DISCUSSED WITH HIM IN DETAIL. HE DOES NEED TO STAY ON A GOOD MAINTENANCE REGIMEN. I WOULD START HIM BACK ON GENERIC SYMBICORT ( BUDESONIDE -FORM ) 160- 4.52 PUFFS B.I.D. 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 A CHEST X-RAY IS ORDERED A BASELINE, TO MAKE SURE THAT HE DOES NOT HAVE ANY PARENCHYMAL LUNG .DISEASE Orders: Orders AMB Spirometry Testing Today J45.909 - Unspecified asthma, uncomplicated Complete Blood Count Auto Diff Today J45.909 - Unspecified asthma, uncomplicated Immunoglobulin E Today J45.909 - Unspecified asthma, uncomplicated XR chest 2V Today J45.909 - Unspecified asthma, uncomplicated Medications: New budesonide-formoterol 160-4.5 mcg/actuation 2 puffs inhalation BID 30 days 10.2 grams 4RF ASTHMA tiotropium bromide 2.5 mcg/actuation (Spiriva Respimat) 2 puffs inhalation QAM 4 grams 4RF ASTHMA/COPD 30 days tiotropium bromide 2.5 mcg/actuation (Spiriva Respimat) 2 puffs inhalation QAM 30 days 4 grams 4RF ASTHMA/COPD budesonide-formoterol 160-4.5 mcg/actuation 2 puffs inhalation BID 10.2 grams 4RF ASTHMA 30 days Coding Level of Care Code Est Pt Level 3 (14781) Diagnoses Asthma J45.909 CPT Codes Spirometry - CPT: 03984- Spirometry ([id number])
--- OUTSIDE RECORDS SUMMARY | 2024-12-07 10:23 | XMS_ITS | Continuity of Care Document ---
Author Name [facility] Organization [facility] Care Team Providers Care Senior Quality Methods Specialist Name Role Phone DOD-MI Unavailable Unavailable Problems Combined list of problems from Department of Defense and Veterans Affairs facilities. It does not include entries that were removed or entered in error. Problem Status Onset Date Problem Type Date of Resolution Comments Source Bronchial asthma Active Condition [facility] Exposure to potentially hazardous substance Active Condition Nov 12, 2023 Entered By: ANDREEA GAFFNEY Comment: connect JERRY Snomed Code to ICD 10 Code [facility]15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 s/p IR ablation on 03/01/[address] [facility] Spondylolisthesis Active Condition [facility] Diagnosis: ICD-10-CM G47.30 Sleep apnea, unspecified Active Diagnosis [facility] ([id number]) Diagnosis: ICD-10-CM F43.9 Reaction to severe stress, unspecified Active Diagnosis [facility] Diagnosis: ICD-10-CM F41.9 Anxiety disorder, unspecified Active Diagnosis [facility] Diagnosis: ICD-10-CM F17.200 Nicotine dependence, unspecified, uncomplicated Active Diagnosis [facility] Diagnosis: ICD-10-CM H16.143 Punctate keratitis, bilateral Active Diagnosis [facility] [place] [facility] Diagnosis: ICD-10-CM Z71.89 Other specified counseling Active Diagnosis [facility] [place] [facility] Diagnosis: ICD-10-CM Z51.81 Encounter for therapeutic drug level monitoring Active Diagnosis [facility] Diagnosis: ICD-10-CM J45.998 Other asthma Active Diagnosis [facility] [place] [place] [facility] Diagnosis: ICD-10-CM M25.552 Pain in left hip [facility] Medications Combined list of outpatient medications from Department of Defense and Veterans [facility] facilities.Medications provided include 1) outpatient medications from the last 15 months, and 2) patient-reported medications. Medication Details Route Status Patient Instructions Prescription Expires Prescription Number Last Dispense Date Ordering Provider Order Date Order Qty Source ALBUTEROL 90MCG/ACTUA T (CFC-F) INHL,ORAL,8 .5GM DOSE COUNTER INHALE 2 PUFFS BY MOUTH EVERY 6 HOURS NEEDED FOR [facility]ON[place] RESPIR ATORY (INHAL ATION) 10/15/2024 [id number] [facility] FLUTICASONE 500MCG/SALM ETEROL 50MCG INHL,ORAL,D ISKUS,60 INHALE 1 PUFF BY MOUTH TWICE DAILY - RINSE MOUTH AFTER USE RESPIR ATORY (INHAL ATION) 10/15/2024 [id number] 4 [facility] HYPROMELLOS E 0.3% GEL,OPH APPLY 1 TO 2 DROPS INTO THE LEFT EYE AT BEDTIME OPHTHA LMIC 07/08/2024 [id number] Jayda WILSON 2023 [facility] PEG-400 0.4%/PROPYL EDILBERTO GLYCOL 0.3% SOLN,OPH INSTILL 1 DROP INTO THE LEFT EYE FOUR TIMES A DAY FOR DRY EYE OPHTHA LMIC ACTIVE 06/09/2025 [id number] Jayda WILSON 2023 15 [place] [facility] [place] [facility] Allergies, Adverse Reactions, Alerts Combined list of allergies from Department of Defense and Veterans Affairs facilities. It does not include entries that were removed or entered in error. Substance Category Reaction Severity Reaction type Status Date Reported Comments Source POISON NILAM Propensity to adverse reaction (finding) Itching active 9 [facility] [place] [facility] Immunizations Combined list of available immunizations from the Department of Defense and Veterans Affairs facilities. Immunization Series Date Given Administered By Site Reaction Lot Number CVX Code Drug Data Integrity Specialist Status Comments Source COVID-19 (MODERNA), MRNA, LNP-S, PF, 100 MCG/0.5 ML DOSE 2 2020 207 complet ed [facility] COVID-19 (MODERNA), MRNA, LNP-S, PF, 100 MCG/0.5 ML DOSE 1 2020 207 complet ed [facility] INFLUENZA, UNSPECIFIED FORMULATION 2019 88 complet ed [facility] INFLUENZA, INJECTABLE, QUADRIVALENT, PRESERVATIVE FREE 2018 150 complet ed Site: Right Deltoid [facility] PNEUMOCOCCAL POLYSACCHARID E PPV23 2016 33 complet ed [facility] DTAP 2016 20 complet ed Site: Left Deltoid [facility] HPV, QUADRIVALENT 2013 62 complet ed # 3 OF 3; #1 AND #2 RECEIVED WHILE IN [facility] HPV, UNSPECIFIED FORMULATION 2013 137 complet ed [facility] TD(ADULT) UNSPECIFIED FORMULATION 2008 139 complet ed [place] [facility] [place] [facility] Results Combined list of recent chemistry, hematology and other laboratory results from Department of Defense and Veterans Affairs, ranging from 15 months to all on record, depending upon the facility. Order Name Results Value Reference Range Date Interpretation Specimen Comments Source PTT APTT IN PLATELET POOR PLASMA BY COAGULATIO N ASSAY 34.2 s 26.0 - 36.0 01/14 Specimen Type: PLASMA No comment entered. Ordering Provider: JIM KIM Report Released Date/Time: Jan 15, 2024 10:27 AM Reporting Lab: [facility] [place] [facility] [address] [facility] [address] Performing Lab: [facility] [address] [facility] [address] [facility] [place] [facility] PT & INR (PROTIME ) INR IN PLATELET POOR PLASMA BY COAGULATIO N ASSAY 1.1 01/14 Specimen Type: PLASMA No comment entered. Ordering Provider: JIM KIM Report Released Date/Time: Jan 15, 2024 10:27 AM Reporting Lab: [facility] [place] [facility] [address] [facility] [address] Performing Lab: [place] [facility] [place] [facility] [address] [facility] [address] [facility] [place] [facility] PT & INR (PROTIME ) PROTHROMBI N TIME (PT) 12.2 s 10.0 - 13.1 01/14 Specimen Type: PLASMA No comment entered. Ordering Provider: JIM KIM Report Released Date/Time: Jan 15, 2024 10:27 AM Reporting Lab: [facility] [place] [facility] [address] [facility] [address] Performing Lab: [facility] [place] [facility] [address] [facility] [address] [place] [facility] [place] [facility] CBC AND DIFF (AUTO) LEUKOCYTES [#/VOLUME] IN BLOOD BY AUTOMATED COUNT 5.83 10*3/uL 4.50 - 11.00 01/14 Specimen Type: BLOOD No comment entered. Ordering Provider: JIM KIM Report Released Date/Time: Jan 15, 2024 10:27 AM Reporting Lab: [facility] [place] [facility] [address] [facility] [address] Performing Lab: [facility] [place] [address] [address] [place] [facility] [place] [facility] CBC AND DIFF (AUTO) ERYTHROCYT ES [#/VOLUME] IN BLOOD BY AUTOMATED COUNT 5.50 10*6/uL 4.23 - 5.66 01/14 Specimen Type: BLOOD No comment entered. Ordering Provider: JIM KIM Report Released Date/Time: Jan 15, 2024 10:27 AM Reporting Lab: [facility] [place] [facility] [address] [facility] [address] Performing Lab: [facility] [place] [facility] [address] [facility] [address] [facility] [place] [facility] CBC AND DIFF (AUTO) HEMOGLOBIN [MASS/VOLU ME] IN BLOOD 16.1 g/dL 12.8 - 17 01/14 Specimen Type: BLOOD No comment entered. Ordering Provider: JIM KIM Report Released Date/Time: Jan 15, 2024 10:27 AM Reporting Lab: [facility] [place] [facility] [address] [facility] [address] Performing Lab: [facility] [place] [address] [address] [place] [facility] [place] [place] [facility] CBC AND DIFF (AUTO) HEMATOCRIT [VOLUME FRACTION] OF BLOOD BY AUTOMATED COUNT 45.8 39.2 - 50.4 01/14 Specimen Type: BLOOD No comment entered. Ordering Provider: JIM KIM Report Released Date/Time: Jan 15, 2024 10:27 AM Reporting Lab: [facility] [place] [facility] [address] [facility] [address] Performing Lab: [facility] [place] [facility] [address] [facility] [address] [facility] [place] [facility] CBC AND DIFF (AUTO) MCV [ENTITIC VOLUME] BY AUTOMATED COUNT 83.3 fL 82 - 99 01/14 Specimen Type: BLOOD No comment entered. Ordering Provider: JIM KIM Report Released Date/Time: Jan 15, 2024 10:27 AM Reporting Lab: [facility] [place] [facility] [address] [facility] [address] Performing Lab: [facility] [place] [address] [address] [facility] CBC AND DIFF (AUTO) MCHC [MASS/VOLU ME] BY AUTOMATED COUNT 35.2 g/dL 30.8 - 35.1 01/14 H Specimen Type: BLOOD No comment entered. Ordering Provider: JIM KIM Report Released Date/Time: Jan 15, 2024 10:27 AM Reporting Lab: [facility] [place] [facility] [address] [facility] [address] Performing Lab: [facility] [place] [facility] [address] [facility] [address] [facility] [place] [facility] CBC AND DIFF (AUTO) PLATELETS [#/VOLUME] IN BLOOD BY AUTOMATED COUNT 150 10*3/uL 140 - 360 01/14 Specimen Type: BLOOD No comment entered. Ordering Provider: JIM KIM Report Released Date/Time: Jan 15, 2024 10:27 AM Reporting Lab: [facility] [place] [address] [address] Performing Lab: [place] [facility] [place] [address] [address] [facility] [place] [facility] CBC AND DIFF (AUTO) ERYTHROCYT E DISTRIBUTI ON WIDTH [RATIO] BY AUTOMATED COUNT 12.6 12.0 - 16.0 01/14 Specimen Type: BLOOD No comment entered. Ordering Provider: JIM KIM Report Released Date/Time: Jan 15, 2024 10:27 AM Reporting Lab: [facility] [place] [address] [address] Performing Lab: [facility] [place] [facility] [address] [facility] [address] [facility] [place] [facility] CBC AND DIFF (AUTO) MONOCYTES [#/VOLUME] IN BLOOD BY AUTOMATED COUNT 0.39 10*3/uL 0.30 - 1.10 01/14 Specimen Type: BLOOD No comment entered. Ordering Provider: JIM KIM Report Released Date/Time: Jan 15, 2024 10:27 AM Reporting Lab: [facility] [place] [address] [address] Performing Lab: [facility] [address] [facility] [address] [facility] [place] CBC AND DIFF (AUTO) MCH [ENTITIC MASS] BY AUTOMATED COUNT 29.3 pg 26.2 - 32.6 01/14 Specimen Type: BLOOD No comment entered. Ordering Provider: JIM KIM Report Released Date/Time: Jan 15, 2024 10:27 AM Reporting Lab: [facility] [address] [facility] [address] Performing Lab: [facility] [address] [facility] [address] [facility] [place] [facility] CBC AND DIFF (AUTO) NEUTROPHIL S/100 LEUKOCYTES IN BLOOD BY AUTOMATED COUNT 53.1 43.7 - 75.8 01/14 Specimen Type: BLOOD No comment entered. Ordering Provider: JIM KIM Report Released Date/Time: Jan 15, 2024 10:27 AM Reporting Lab: [facility] [address] [facility] [address] Performing Lab: [facility] [address] [facility] [address] [facility] [place] CBC AND DIFF (AUTO) LYMPHOCYTE S/100 LEUKOCYTES IN BLOOD BY AUTOMATED COUNT 36.9 14.0 - 42.3 01/14 Specimen Type: BLOOD No comment entered. Ordering Provider: JIM KIM Report Released Date/Time: Jan 15, 2024 10:27 AM Reporting Lab: [facility] [address] [facility] [address] Performing Lab: [facility] [address] [facility] [address] [facility] [place] CBC AND DIFF (AUTO) MONOCYTES/ 100 LEUKOCYTES IN BLOOD BY AUTOMATED COUNT 6.7 5.1 - 13.7 01/14 Specimen Type: BLOOD No comment entered. Ordering Provider: JIM KIM Report Released Date/Time: Jan 15, 2024 10:27 AM Reporting Lab: [facility] [place] [facility] [address] [facility] [address] Performing Lab: [facility] [place] [facility] [address] [facility] [address] [facility] [place] [facility] CBC AND DIFF (AUTO) EOSINOPHIL S/100 LEUKOCYTES IN BLOOD BY AUTOMATED COUNT 2.1 0.4 - 6.8 01/14 Specimen Type: BLOOD No comment entered. Ordering Provider: JIM KIM Report Released Date/Time: Jan 15, 2024 10:27 AM Reporting Lab: [facility] [place] [place] [facility] [address] [facility] [address] Performing Lab: [place] [facility] [place] [facility] [address] [facility] [address] [facility] [place] [facility] CBC AND DIFF (AUTO) BASOPHILS/ 100 LEUKOCYTES IN BLOOD BY AUTOMATED COUNT 1.0 0.1 - 2.0 01/14 Specimen Type: BLOOD No comment entered. Ordering Provider: JIM KIM Report Released Date/Time: Jan 15, 2024 10:27 AM Reporting Lab: [facility] [place] [facility] [address] [facility] [address] Performing Lab: [facility] [place] [facility] [address] [facility] [address] [facility] [place] [facility] CBC AND DIFF (AUTO) NEUTROPHIL S [#/VOLUME] IN BLOOD BY AUTOMATED COUNT 3.10 10*3/uL 2.20 - 7.60 01/14 Specimen Type: BLOOD No comment entered. Ordering Provider: JIM KIM Report Released Date/Time: Jan 15, 2024 10:27 AM Reporting Lab: [place] [facility] [place] [facility] [address] [facility] [address] Performing Lab: [facility] [place] [facility] [address] [facility] [address] [facility] [place] [facility] CBC AND DIFF (AUTO) LYMPHOCYTE S [#/VOLUME] IN BLOOD BY AUTOMATED COUNT 2.15 10*3/uL 1.00 - 3.20 01/14 Specimen Type: BLOOD No comment entered. Ordering Provider: JIM KIM Report Released Date/Time: Jan 15, 2024 10:27 AM Reporting Lab: [facility] [place] [facility] [address] [facility] [address] Performing Lab: [facility] [facility] [address] [facility] [address] [facility] [place] [facility] CBC AND DIFF (AUTO) EOSINOPHIL S [#/VOLUME] IN BLOOD BY AUTOMATED COUNT 0.12 10*3/uL 0.03 - 0.44 01/14 Specimen Type: BLOOD No comment entered. Ordering Provider: JIM KIM Report Released Date/Time: Jan 15, 2024 10:27 AM Reporting Lab: [facility] [place] [facility] [address] [facility] [address] Performing Lab: [facility] [place] [facility] [address] [facility] [address] [facility] [place] [facility] CBC AND DIFF (AUTO) BASOPHILS [#/VOLUME] IN BLOOD BY AUTOMATED COUNT 0.06 10*3/uL 0.01 - 0.13 01/14 Specimen Type: BLOOD No comment entered. Ordering Provider: JIM KIM Report Released Date/Time: Jan 15, 2024 10:27 AM Reporting Lab: [facility] [place] [facility] [address] [facility] [address] Performing Lab: [facility] [facility] [address] [facility] [address] [facility] [place] [facility] CBC AND DIFF (AUTO) IMMATURE GRANULOCYT ES/100 LEUKOCYTES IN BLOOD BY AUTOMATED COUNT 0.2 0.0 - 0.7 01/14 Specimen Type: BLOOD No comment entered. Ordering Provider: JIM KIM Report Released Date/Time: Jan 15, 2024 10:27 AM Reporting Lab: [facility] [place] [facility] [address] [facility] [address] Performing Lab: [facility] [facility] [address] [facility] [address] [facility] [place] [facility] CBC AND DIFF (AUTO) IMMATURE GRANULOCYT ES [#/VOLUME] IN BLOOD 0.01 10*3/uL 0.00 - 0.06 01/14 Specimen Type: BLOOD No comment entered. Ordering Provider: JIM KIM Report Released Date/Time: Jan 15, 2024 10:27 AM Reporting Lab: [facility] [address] [address] Performing Lab: [facility] [address] [address] [facility] BASIC METABOLI C PANEL (fasting ) UREA NITROGEN [MASS/VOLU ME] IN SERUM OR PLASMA 13 mg/dL 7 - 25 01/14 Specimen Type: SERUM No comment entered. Ordering Provider: JIM KIM Report Released Date/Time: Jan 15, 2024 10:27 AM Reporting Lab: [facility] [address] [address] Performing Lab: [facility] [address] [address] [facility] BASIC METABOLI C PANEL (fasting ) GLUCOSE [MASS/VOLU ME] IN SERUM OR PLASMA 88 mg/dL 65 - 100 01/14 Specimen Type: SERUM No comment entered. Ordering Provider: JIM KIM Report Released Date/Time: Jan 15, 2024 10:27 AM Reporting Lab: [facility] [address] Performing Lab: [facility]N [facility]ITALUSE[address] [address] [facility] BASIC METABOLI C PANEL (fasting ) SODIUM [MOLES/VOL UME] IN SERUM OR PLASMA 141 mmol/L 135 - 145 01/14 Specimen Type: SERUM No comment entered. Ordering Provider: JIM KIM Report Released Date/Time: Jan 15, 2024 10:27 AM Reporting Lab: [facility] [address] [address] Performing Lab: [facility] [place] [facility] [address] [facility] [address] [facility] [place] [facility] BASIC METABOLI C PANEL (fasting ) POTASSIUM [MOLES/VOL UME] IN SERUM OR PLASMA 4.5 mmol/L 3.5 - 5.0 01/14 Specimen Type: SERUM No comment entered. Ordering Provider: JIM KIM Report Released Date/Time: Jan 15, 2024 10:27 AM Reporting Lab: [place] [facility] [place] [address] [address] Performing Lab: [place] [facility] [place] [address] [address] [facility] [place] [facility] BASIC METABOLI C PANEL (fasting ) CHLORIDE [MOLES/VOL UME] IN SERUM OR PLASMA 107 mmol/L 100 - 110 01/14 Specimen Type: SERUM No comment entered. Ordering Provider: JIM KIM Report Released Date/Time: Jan 15, 2024 10:27 AM Reporting Lab: [facility] [place] [address] [address] Performing Lab: [place] [facility] [place] [address] [address] [facility] [place] [facility] BASIC METABOLI C PANEL (fasting ) CARBON DIOXIDE, TOTAL [MOLES/VOL UME] IN SERUM OR PLASMA 27 meq/L 20 - 30 01/14 Specimen Type: SERUM No comment entered. Ordering Provider: JIM KIM Report Released Date/Time: Jan 15, 2024 10:27 AM Reporting Lab: [place] [facility] [place] [address] [address] Performing Lab: [place] [facility] [place] [address] [address] [facility] [place] [facility] BASIC METABOLI C PANEL (fasting ) CREATININE [MASS/VOLU ME] IN SERUM OR PLASMA 1.17 mg/dL 0.50 - 1.40 01/14 Specimen Type: SERUM No comment entered. Ordering Provider: JIM KIM Report Released Date/Time: Jan 15, 2024 10:27 AM Reporting Lab: [facility] [place] [facility] [address] [facility] [address] Performing Lab: [facility] [place] [facility] [address] [facility] [address] [facility] [place] [facility] BASIC METABOLI C PANEL (fasting ) GLOMERULAR FILTRATION RATE/1.73 SQ M.PREDICTE D [VOLUME RATE/AREA] IN SERUM, PLASMA OR BLOOD BY CREATININE -BASED FORMULA (CKD-EPI 2020) 83 mL/min 60 01/14 Specimen Type: SERUM No comment entered. Ordering Provider: JIM KIM Report Released Date/Time: Jan 15, 2024 10:27 AM Reporting Lab: [facility] [place] [facility] [address] [facility] [address] Performing Lab: [place] [facility] [place] [address] [address] [facility] [place] [facility] LIPID PANEL FASTING CHOLESTERO L [MASS/VOLU ME] IN SERUM OR PLASMA 146 mg/dL 10/10 Specimen Type: SERUM No comment entered. Ordering Provider: SHAWN RINCON Report Released Date/Time: Sep 29, 2023 08:21 AM Reporting Lab: [facility] [place] [facility] [address] [facility] [address] Performing Lab: [facility] [place] [facility] [address] [facility] [address] [facility] [place] [facility] LIPID PANEL FASTING TRIGLYCERI DE [MASS/VOLU ME] IN SERUM OR PLASMA 142 mg/dL 0 - 150 10/10 Specimen Type: SERUM No comment entered. Ordering Provider: SHAWN RINCON Report Released Date/Time: Sep 29, 2023 08:21 AM Reporting Lab: [facility] [place] [facility] [address] [facility] [address] Performing Lab: [facility] [place] [facility] [address] [facility] [address] [facility] [place] [facility] LIPID PANEL FASTING CHOLESTERO L IN LDL [MASS/VOLU ME] IN SERUM OR PLASMA BY CALCULATIO N 80 mg/dL 0 - 129 10/10 Specimen Type: SERUM No comment entered. Ordering Provider: SHAWN RINCON Report Released Date/Time: Sep 29, 2023 08:21 AM Reporting Lab: [facility] [place] [facility] [address] [facility] [address] Performing Lab: [place] [facility] [place] [facility] [address] [facility] [address] [facility] [place] [facility] LIPID PANEL FASTING CHOLESTERO L.TOTAL/CH OLESTEROL IN HDL [MASS RATIO] IN SERUM OR PLASMA 3.8 10/10 Specimen Type: SERUM No comment entered. Ordering Provider: SHAWN RINCON Report Released Date/Time: Sep 29, 2023 08:21 AM Reporting Lab: [facility] [place] [place] [facility] [address] [facility] [address] Performing Lab: [place] [facility] [place] [facility] [address] [facility] [phone] [facility] [place] [facility] LIPID PANEL FASTING CHOLESTERO L IN HDL [MASS/VOLU ME] IN SERUM OR PLASMA 38 mg/dL 40 - 60 10/10 L Specimen Type: SERUM No comment entered. Ordering Provider: SHAWN RINCON Report Released Date/Time: Sep 29, 2023 08:21 AM Reporting Lab: [facility] [place] [facility] [address] [facility] [phone] Performing Lab: [place] [facility] [place] [facility] [address] [facility] [phone] [facility] [place] [facility] BASIC METABOLI C PANEL (fasting ) UREA NITROGEN [MASS/VOLU ME] IN SERUM OR PLASMA 14 mg/dL 7 - 25 10/10 Specimen Type: SERUM No comment entered. Ordering Provider: SHAWN RINCON Report Released Date/Time: Sep 29, 2023 08:21 AM Reporting Lab: [facility] [place] [place] [facility] [address] [facility] [phone] Performing Lab: [place] [facility] [place] [facility] [address] [facility] [phone] [place] [facility] [place] [facility] BASIC METABOLI C PANEL (fasting ) GLUCOSE [MASS/VOLU ME] IN SERUM OR PLASMA 99 mg/dL 65 - 100 10/10 Specimen Type: SERUM No comment entered. Ordering Provider: SHAWN RINCON Report Released Date/Time: Sep 29, 2023 08:21 AM Reporting Lab: [place] [facility] [place] [facility] [address] [facility] [address] Performing Lab: [place] [facility] [place] [facility] [facility] [address] [facility] [address] [facility] [place] [facility] BASIC METABOLI C PANEL (fasting ) SODIUM [MOLES/VOL UME] IN SERUM OR PLASMA 142 mmol/L 135 - 145 10/10 Specimen Type: SERUM No comment entered. Ordering Provider: SHAWN RINCON Report Released Date/Time: Sep 29, 2023 08:21 AM Reporting Lab: [facility] [place] [facility] [address] [facility] [address] Performing Lab: [facility] [place] [facility] [address] [facility] [address] [facility] [place] [facility] BASIC METABOLI C PANEL (fasting ) POTASSIUM [MOLES/VOL UME] IN SERUM OR PLASMA 4.3 mmol/L 3.5 - 5.0 10/10 Specimen Type: SERUM No comment entered. Ordering Provider: SHAWN RINCON Report Released Date/Time: Sep 29, 2023 08:21 AM Reporting Lab: [facility] [place] [facility] [address] [facility] [address] Performing Lab: [facility] [place] [facility] [address] [facility] [address] [facility] [place] [facility] BASIC METABOLI C PANEL (fasting ) CHLORIDE [MOLES/VOL UME] IN SERUM OR PLASMA 106 mmol/L 100 - 110 10/10 Specimen Type: SERUM No comment entered. Ordering Provider: SHAWN RINCON Report Released Date/Time: Sep 29, 2023 08:21 AM Reporting Lab: [facility] [place] [facility] [address] [facility] [address] Performing Lab: [facility] [place] [facility] [address] [facility] [address] [facility] [place] [facility] BASIC METABOLI C PANEL (fasting ) CARBON DIOXIDE, TOTAL [MOLES/VOL UME] IN SERUM OR PLASMA 28 meq/L 20 - 30 10/10 Specimen Type: SERUM No comment entered. Ordering Provider: SHAWN RINCON Report Released Date/Time: Sep 29, 2023 08:21 AM Reporting Lab: [facility] [place] [facility] [address] [facility] [address] Performing Lab: [facility] [place] [facility] [address] [facility] [address] [facility] [place] [facility] BASIC METABOLI C PANEL (fasting ) CREATININE [MASS/VOLU ME] IN SERUM OR PLASMA 1.35 mg/dL 0.50 - 1.40 10/10 Specimen Type: SERUM No comment entered. Ordering Provider: SHAWN RINCON Report Released Date/Time: Sep 29, 2023 08:21 AM Reporting Lab: [facility] [place] [facility] [address] [facility] [address] Performing Lab: [facility] [place] [facility] [address] [facility] [address] [facility] [place] [facility] BASIC METABOLI C PANEL (fasting ) GLOMERULAR FILTRATION RATE/1.73 SQ M.PREDICTE D [VOLUME RATE/AREA] IN SERUM, PLASMA OR BLOOD BY CREATININE -BASED FORMULA (CKD-EPI 2020) 70 mL/min 60 10/10 Specimen Type: SERUM No comment entered. Ordering Provider: SHAWN RINCON Report Released Date/Time: Sep 29, 2023 08:21 AM Reporting Lab: [facility] [place] [facility] [address] [facility] [address] Performing Lab: [facility] [place] [address] [address] [facility] [place] [facility] LIVER FUNCTION PROTEIN [MASS/VOLU ME] IN SERUM OR PLASMA 6.7 g/dL 6.0 - 8.3 10/10 Specimen Type: SERUM No comment entered. Ordering Provider: SHAWN RINCON Report Released Date/Time: Sep 29, 2023 08:21 AM Reporting Lab: [facility] [place] [facility] [address] [facility] [address] Performing Lab: [facility] [place] [address] [address] [facility] [place] [facility] LIVER FUNCTION ALBUMIN [MASS/VOLU ME] IN SERUM OR PLASMA 4.0 g/dL 3.5 - 5.0 10/10 Specimen Type: SERUM No comment entered. Ordering Provider: SHAWN RINCON Report Released Date/Time: Sep 29, 2023 08:21 AM Reporting Lab: [facility] [place] [address] [address] Performing Lab: [facility] [place] [address] [address] [facility] [place] [facility] LIVER FUNCTION ALKALINE PHOSPHATAS E [ENZYMATIC ACTIVITY/V OLUME] IN SERUM OR PLASMA 51 U/L 40 - 150 10/10 Specimen Type: SERUM No comment entered. Ordering Provider: SHAWN RINCON Report Released Date/Time: Sep 29, 2023 08:21 AM Reporting Lab: [facility] [place] [address] [address] Performing Lab: [facility] [place] [address] [address] [facility] [place] [facility] LIVER FUNCTION ASPARTATE AMINOTRANS FERASE [ENZYMATIC ACTIVITY/V OLUME] IN SERUM OR PLASMA 18 U/L 5 - 34 10/10 Specimen Type: SERUM No comment entered. Ordering Provider: SHAWN RINCON Report Released Date/Time: Sep 29, 2023 08:21 AM Reporting Lab: [facility] [place] [address] [address] Performing Lab: [facility] [place] [address] [place] [address] [facility] [place] [facility] LIVER FUNCTION ALANINE AMINOTRANS FERASE [ENZYMATIC ACTIVITY/V OLUME] IN SERUM OR PLASMA 31 U/L 10/10 Specimen Type: SERUM No comment entered. Ordering Provider: SHAWN RINCON Report Released Date/Time: Sep 29, 2023 08:21 AM Reporting Lab: [facility] [place] [address] [address] Performing Lab: [facility] [place] [facility] [address] [facility] [address] [facility]USE [facility] LIVER FUNCTION BILIRUBIN. TOTAL [MASS/VOLU ME] IN SERUM OR PLASMA 0.5 mg/dL 0.2 - 1.2 10/10 Specimen Type: SERUM No comment entered. Ordering Provider: SHAWN RINCON Report Released Date/Time: Sep 29, 2023 08:21 AM Reporting Lab: [facility] [place] [place] [address] [address] Performing Lab: [facility] [address] [address] [facility]OSPITALUSE [facility] CBC AND DIFF (AUTO) LEUKOCYTES [#/VOLUME] IN BLOOD BY AUTOMATED COUNT 5.77 10*3/uL 4.50 - 11.00 10/10 Specimen Type: BLOOD No comment entered. Ordering Provider: SHAWN RINCON Report Released Date/Time: Sep 29, 2023 08:21 AM Reporting Lab: [facility] [place] [address] [address] Performing Lab: [facility] [place] [address] [address] [facility]ITAL[facility] CBC AND DIFF (AUTO) ERYTHROCYT ES [#/VOLUME] IN BLOOD BY AUTOMATED COUNT 5.72 10*6/uL 4.23 - 5.66 10/10 H Specimen Type: BLOOD No comment entered. Ordering Provider: SHAWN RINCON Report Released Date/Time: Sep 29, 2023 08:21 AM Reporting Lab: [facility] [place] [facility] [address] [facility] [address] Performing Lab: [facility] [place] [facility] [address] [facility] [address] [facility] [place] [facility] CBC AND DIFF (AUTO) HEMOGLOBIN [MASS/VOLU ME] IN BLOOD 16.5 g/dL 12.8 - 17 10/10 Specimen Type: BLOOD No comment entered. Ordering Provider: SHAWN RINCON Report Released Date/Time: Sep 29, 2023 08:21 AM Reporting Lab: [facility] [place] [facility] [address] [facility] [address] Performing Lab: [facility] [place] [facility] [address] [facility] [address] [facility] [place] [facility] CBC AND DIFF (AUTO) HEMATOCRIT [VOLUME FRACTION] OF BLOOD BY AUTOMATED COUNT 48.2 39.2 - 50.4 10/10 Specimen Type: BLOOD No comment entered. Ordering Provider: SHAWN RINCON Report Released Date/Time: Sep 29, 2023 08:21 AM Reporting Lab: [facility] [place] [facility] [address] [facility] [address] Performing Lab: [facility] [place] [facility] [address] [facility] [address] [facility] [place] [facility] CBC AND DIFF (AUTO) MCV [ENTITIC VOLUME] BY AUTOMATED COUNT 84.3 fL 82 - 99 10/10 Specimen Type: BLOOD No comment entered. Ordering Provider: SHAWN RINCON Report Released Date/Time: Sep 29, 2023 08:21 AM Reporting Lab: [facility] [place] [facility] [address] [facility] [address] Performing Lab: [facility] [facility] [address] [facility] [address] [facility] [place] [facility] CBC AND DIFF (AUTO) MCHC [MASS/VOLU ME] BY AUTOMATED COUNT 34.2 g/dL 30.8 - 35.1 10/10 Specimen Type: BLOOD No comment entered. Ordering Provider: SHAWN RINCON Report Released Date/Time: Sep 29, 2023 08:21 AM Reporting Lab: [facility] [place] [facility] [address] [facility] [address] Performing Lab: [facility] [place] [facility] [address] [facility] [address] [facility] [place] [facility] CBC AND DIFF (AUTO) PLATELETS [#/VOLUME] IN BLOOD BY AUTOMATED COUNT 147 10*3/uL 140 - 360 10/10 Specimen Type: BLOOD No comment entered. Ordering Provider: SHAWN RINCON Report Released Date/Time: Sep 29, 2023 08:21 AM Reporting Lab: [facility] [place] [facility] [address] [facility] [address] Performing Lab: [facility] [place] [facility] [address] [facility] [address] [facility] [place] [facility] CBC AND DIFF (AUTO) ERYTHROCYT E DISTRIBUTI ON WIDTH [RATIO] BY AUTOMATED COUNT 12.5 12.0 - 16.0 10/10 Specimen Type: BLOOD No comment entered. Ordering Provider: SHAWN RINCON Report Released Date/Time: Sep 29, 2023 08:21 AM Reporting Lab: [facility] [place] [facility] [address] [facility] [address] Performing Lab: [facility] [place] [facility] [address] [facility] [address] [facility] [place] [facility] CBC AND DIFF (AUTO) MONOCYTES [#/VOLUME] IN BLOOD BY AUTOMATED COUNT 0.43 10*3/uL 0.30 - 1.10 10/10 Specimen Type: BLOOD No comment entered. Ordering Provider: SHAWN RINCON Report Released Date/Time: Sep 29, 2023 08:21 AM Reporting Lab: [facility] [place] [facility] [address] [facility] [address] Performing Lab: [facility] [facility] [address] [facility] [address] [facility] [place] [facility] CBC AND DIFF (AUTO) MCH [ENTITIC MASS] BY AUTOMATED COUNT 28.8 pg 26.2 - 32.6 10/10 Specimen Type: BLOOD No comment entered. Ordering Provider: SHAWN RINCON Report Released Date/Time: Sep 29, 2023 08:21 AM Reporting Lab: [facility] [place] [facility] [address] [facility] [address] Performing Lab: [facility] [place] [facility] [address] [facility] [address] [facility] [place] [facility] CBC AND DIFF (AUTO) NEUTROPHIL S/100 LEUKOCYTES IN BLOOD BY AUTOMATED COUNT 51.5 43.7 - 75.8 10/10 Specimen Type: BLOOD No comment entered. Ordering Provider: SHAWN RINCON Report Released Date/Time: Sep 29, 2023 08:21 AM Reporting Lab: [facility] [place] [address] [address] Performing Lab: [facility] [place] [address] [address] [facility] [place] [facility] CBC AND DIFF (AUTO) LYMPHOCYTE S/100 LEUKOCYTES IN BLOOD BY AUTOMATED COUNT 36.9 14.0 - 42.3 10/10 Specimen Type: BLOOD No comment entered. Ordering Provider: SHAWN RINCON Report Released Date/Time: Sep 29, 2023 08:21 AM Reporting Lab: [facility] [place] [address] [address] Performing Lab: [facility] [place] [address] [address] [facility] [place] [facility] CBC AND DIFF (AUTO) MONOCYTES/ 100 LEUKOCYTES IN BLOOD BY AUTOMATED COUNT 7.5 5.1 - 13.7 10/10 Specimen Type: BLOOD No comment entered. Ordering Provider: SHAWN RINCON Report Released Date/Time: Sep 29, 2023 08:21 AM Reporting Lab: [facility] [place] [address] [address] Performing Lab: [facility] [place] [facility] [address] [facility] [address] [facility] [place] [facility] CBC AND DIFF (AUTO) EOSINOPHIL S/100 LEUKOCYTES IN BLOOD BY AUTOMATED COUNT 2.9 0.4 - 6.8 10/10 Specimen Type: BLOOD No comment entered. Ordering Provider: SHAWN RINCON Report Released Date/Time: Sep 29, 2023 08:21 AM Reporting Lab: [facility] [place] [facility] [address] [facility] [address] Performing Lab: [facility] [place] [facility] [address] [facility] [address] [facility] [place] [facility] CBC AND DIFF (AUTO) BASOPHILS/ 100 LEUKOCYTES IN BLOOD BY AUTOMATED COUNT 1.0 0.1 - 2.0 10/10 Specimen Type: BLOOD No comment entered. Ordering Provider: SHAWN RINCON Report Released Date/Time: Sep 29, 2023 08:21 AM Reporting Lab: [facility] [place] [facility] [address] [facility] [address] Performing Lab: [facility] [place] [facility] [address] [facility] [address] [facility] [place] [facility] CBC AND DIFF (AUTO) NEUTROPHIL S [#/VOLUME] IN BLOOD BY AUTOMATED COUNT 2.97 10*3/uL 2.20 - 7.60 10/10 Specimen Type: BLOOD No comment entered. Ordering Provider: SHAWN RINCON Report Released Date/Time: Sep 29, 2023 08:21 AM Reporting Lab: [facility] [place] [facility] [address] [facility] [address] Performing Lab: [facility] [place] [facility] [address] [facility] [address] [facility] [place] [facility] CBC AND DIFF (AUTO) LYMPHOCYTE S [#/VOLUME] IN BLOOD BY AUTOMATED COUNT 2.13 10*3/uL 1.00 - 3.20 10/10 Specimen Type: BLOOD No comment entered. Ordering Provider: SHAWN RINCON Report Released Date/Time: Sep 29, 2023 08:21 AM Reporting Lab: [facility] [place] [facility] [address] [facility] [address] Performing Lab: [facility] [place] [facility] [address] [facility] [address] [facility] [place] [facility] CBC AND DIFF (AUTO) EOSINOPHIL S [#/VOLUME] IN BLOOD BY AUTOMATED COUNT 0.17 10*3/uL 0.03 - 0.44 10/10 Specimen Type: BLOOD No comment entered. Ordering Provider: SHAWN RINCON [employer] Report Released Date/Time: Sep 29, 2023 08:21 AM Reporting Lab: [facility] [place] [facility] [address] [facility] [address] Performing Lab: [facility] [place] [place] [facility] [address] [facility] [address] [facility] [place] [facility] CBC AND DIFF (AUTO) BASOPHILS [#/VOLUME] IN BLOOD BY AUTOMATED COUNT 0.06 10*3/uL 0.01 - 0.13 10/10 Specimen Type: BLOOD No comment entered. Ordering Provider: SHAWN RINCON e-ZassiLETTY Report Released Date/Time: Sep 29, 2023 08:21 AM Reporting Lab: [facility] [place] [facility] [address] [facility] [address] Performing Lab: [facility] [place] [facility] [address] [facility] [address] [facility] [place] [facility] CBC AND DIFF (AUTO) IMMATURE GRANULOCYT ES/100 LEUKOCYTES IN BLOOD BY AUTOMATED COUNT 0.2 0.0 - 0.7 10/10 Specimen Type: BLOOD No comment entered. Ordering Provider: SHAWN RINCON e-ZassiLETTY Report Released Date/Time: Sep 29, 2023 08:21 AM Reporting Lab: [facility] [place] [facility] [address] [facility] [address] Performing Lab: [facility] [place] [facility] [address] [facility] [address] [facility] [place] [facility] CBC AND DIFF (AUTO) IMMATURE GRANULOCYT ES [#/VOLUME] IN BLOOD 0.01 10*3/uL 0.00 - 0.06 10/10 Specimen Type: BLOOD No comment entered. Ordering Provider: SHAWN RINCON Report Released Date/Time: Sep 29, 2023 08:21 AM Reporting Lab: [facility] [address] [facility] [address] Performing Lab: [address] [address] [facility] LYME DISEASE DNA RT PCR, BLOOD BORRELIA BURGDORFER I DNA [PRESENCE] IN BLOOD BY AICHA WITH PROBE DETECTION Not Detected 01/15 Specimen Type: BLOOD Comment: The diagnostic value of a negative Borrelia species PCR result from whole blood has not been established . A negative result does not exclude Borrelia infection because the concentrati on of the organism in blood tends to be low or non-existen t in patients with Borreliosis . The [facility] [place] [facility] [place], Article 1 of Chapter 5 of Title 32.1, section 32.1-137.06 , requires that the following language must be included on every Lyme disease test report issued by a [place] laboratory: Patients undergoing a Lyme disease test should be aware that Lyme disease tests vary and may produce results that are inaccurate. This means a patient may not be able to rely on a positive or negative result. Health care providers are encouraged to discuss Lyme disease test results with the patient for whom the test was ordered. For additional information , please refer to [email or web address]/faq/f [email or web address] (This link is being provided for information al/ educational purposes only.) This test was developed and its analytical performance characteris tics have been determined by [employer] [place]. It has not been cleared or approved by the U.S. Food and Drug Administrat ion. This assay has been validated pursuant to the CLIA regulations and is used for clinical purposes. Test Performed by Janice Ya, [employer] [place], [address] [place] [address] Jann Medel M.D., Ph.D., Director of Laboratorie s , CLIA [id number] TEST PERFORMED AT: , Ordering Provider: SHAWN RINCON Report Released Date/Time: Jan 13, 2023 04:26 PM Reporting Lab: [facility] [address] [facility] [address] Performing Lab: [facility] [address] [address] [facility] LYME SEROLOGY PANEL BORRELIA BURGDORFER I AB [PRESENCE] IN SERUM Negative 01/15 Specimen Type: SERUM Comment: The LYME SEROLOGY PANEL was performed using the FDA-approve d Dallin JALEEL Borrelia burdorferi modified two-tier test system. This modified methodology uses a second EIA in place of a western immunoblot assay, which the FDA has determined is substantia lly equivalent to or better than standard two-tier testing using western blot. Supplementa l testing with a second EIA meets CDC guidelines for Lyme disease testing. Performance characteris tics of the panel were validated at the [place] [facility]. Results are considered positive only if the initial screening EIA is positive or equivocal, and either or both supplementa l EIAs (for IgM and IgG) are positive. Diagnosis of Lyme disease should not be based solely on laboratory results. Clinical and exposure history must be considered. Positive antibody results reflect prior immunologic exposure, and do not necessarily indicate active infection. False positive results are possible in patients with other spirochetal infections, infectious mononucleos is, and connective tissue disorders. Negative results do not exclude B. burgdorferi infection. Only 10-40% of patients with erythema migrans alone have detectable antibodies. False negative results are possible, if specimens are drawn too soon after infection before an antibody response. Antibody induction may be aborted by early antibiotic therapy. Results in immunosuppr essed individuals should be interpreted with caution. If Lyme disease is strongly suspected, but antibody was not detected, a second specimen collected about 2-4 weeks after the first should be tested. This test is NOT for use in screening individuals without signs, symptoms or exposure history. Physicians should report all cases of Lyme disease to their state and local health departments , if applicable. The [place] State Form URL is: http://www. [place].gov/dph/ [place]on/dph/inf ectious_dis eases/pdf_f orms_/pd23_ form.pdf Ordering Provider: SHAWN RINCON Report Released Date/Time: Jan 13, 2023 04:25 PM Reporting Lab: [facility] [address] [facility] [address] Performing Lab[facility] [address] [facility] [address] [facility] LYME SEROLOGY PANEL BORRELIA BURGDORFER I IGG+IGM AB [PRESENCE] IN SERUM BY IMMUNOBLOT Negative 01/15 Specimen Type: SERUM Comment: The LYME SEROLOGY PANEL was performed using the FDA-approve d Dallin JALEEL Borrelia burdorferi modified two-tier test system. This modified methodology uses a second EIA in place of a western immunoblot assay, which the FDA has determined is substantia lly equivalent to or better than standard two-tier testing using western blot. Supplementa l testing with a second EIA meets CDC guidelines for Lyme disease testing. Performance characteris tics of the panel were validated at the [facility]. Results are considered positive only if the initial screening EIA is positive or equivocal, and either or both supplementa l EIAs (for IgM and IgG) are positive. Diagnosis of Lyme disease should not be based solely on laboratory results. Clinical and exposure history must be considered. Positive antibody results reflect prior immunologic exposure, and do not necessarily indicate active infection. False positive results are possible in patients with other spirochetal infections, infectious mononucleos is, and connective tissue disorders. Negative results do not exclude B. burgdorferi infection. Only 10-40% of patients with erythema migrans alone have detectable antibodies. False negative results are possible, if specimens are drawn too soon after infection before an antibody response. Antibody induction may be aborted by early antibiotic therapy. Results in immunosuppr essed individuals should be interpreted with caution. If Lyme disease is strongly suspected, but antibody was not detected, a second specimen collected about 2-4 weeks after the first should be tested. This test is NOT for use in screening individuals without signs, symptoms or exposure history. Physicians should report all cases of Lyme disease to their state and local health departments , if applicable. The [place] State Form URL is: http://www. [place].gov/dph/ [place]on/dph/inf ectious_dis eases/pdf_f orms_/pd23_ form.pdf Ordering Provider: AHMED,MOHAM MED JAWED Report Released Date/Time: Jan 13, 2023 04:25 PM Reporting Lab: [facility] [place] [facility] [address] [facility] [address] Performing Lab: [facility] [place] [facility] [address] [facility] [address] [facility] Vital Signs Combined list of inpatient and outpatient Vital Signs from Department of Defense and Veterans Affairs, ranging from 12 months to all on record, depending upon the facility. Vital Sign Value Date Comments Source SYSTOLIC BLOOD PRESSURE 127 10/06/19 25 13:56:56 [facility] DIASTOLIC BLOOD PRESSURE 84 025 13:56:56 [facility] PULSE OXIMETRY 97 10/06/2024 13:56:56 [facility] WEIGHT 234 10/06/2024 13[facility]56:56 [facility] BMI 33 kg/m2 10/06/2024 13[facility]56:56 [facility] PAIN 6 10/06/2024 13:56:56 [facility] TEMPERATURE 98.2 10/06/2024 13:56:56 [facility] PULSE 74 10/06/2024 13:56:56 [facility] RESPIRATION 16 10/06/2024 13:56:56 [facility] SYSTOLIC BLOOD PRESSURE 131 06/08/20 24 11:12:03 [facility] DIASTOLIC BLOOD PRESSURE 84 024 11:12:03 [facility] PULSE OXIMETRY 98 06/08/2024 11:12:03 [facility] TEMPERATURE 98.7 06/08/2024 11:12:03 [facility] PULSE 72 06/08/2024 11:12:03 [facility] RESPIRATION 18 06/08/2024 11:12:03 [facility] SYSTOLIC BLOOD PRESSURE 127 03/22/20 24 11:33:18 [facility] DIASTOLIC BLOOD PRESSURE 82 024 11:33:18 [facility] PULSE OXIMETRY 100 03/22/2024 11:33:18 [facility] WEIGHT 230 03/22/2024 11:33:18 [facility] BMI 32 kg/m2 03/22/2024 11:33:18 [facility] PAIN 5 03/22/2024 11:33:18 [facility] TEMPERATURE 97.9 03/22/2024 11:33:18 [facility] PULSE 61 03/22/2024 11:33:18 [facility] RESPIRATION 16 03/22/2024 11:33:18 [facility] SYSTOLIC BLOOD PRESSURE 129 01/15/20 24 09:03:44 [facility] DIASTOLIC BLOOD PRESSURE 82 024 09:03:44 [facility] PULSE OXIMETRY 98 01/15/2024 09:03:44 [facility] WEIGHT 227 01/15/2024 09:03:44 [facility] BMI 32 kg/m2 01/15/2024 09:03:44 [facility] PAIN 7 01/15/2024 09:03:44 [facility] [facility] HEIGHT 71 01/15/2024 09:03:44 [facility] TEMPERATURE 97.5 01/15/2024 09:03:44 [facility] PULSE 72 01/15/2024 09:03:44 [facility] RESPIRATION 16 01/15/2024 09:03:44 [facility] Encounters Combined list of: 1) Encounters from Department of Veterans Affairs facilities going backup to the last 18 months, not all VA inpatient encounters are included; 2) Encounters from the Department of Defense facilities going backup to 280 months. Location Location Details Encounter Type Encounter Number Reason For Visit Attending Provider ADM Date DC Date Status Disposition Source [facility] Out[facility] Encounter [id number] 06/23 [facility] Out[facility] Encounter [id number] 06/23 [facility] Outpatient Encounter [id number] 06/25 [facility] Out[facility] Encounter [id number] 10/03 [facility] OFFICE O/P EST MOD 30 MIN [id number] Diagnos is: ICD-10- CM J45.998 Other asthma MARYJANE RINCON MMED JAWED 10/15 [facility] Out[facility] Encounter [id number] 10/31 [facility] Out[facility] Encounter [id number] 11/03 [facility] Out[facility] Encounter [id number] 11/03 [facility] Out[facility] Encounter [id number] 11/06 [facility] Out[facility] Encounter [id number] Diagnos is: ICD-10- CM M25.552 Pain in left hip MARYJANE RINCON MMED JAWED 11/07 [facility] Encounter [id number] 11/11 [facility] Encounter [id number] 11/26 [facility] Encounter [id number] 12/16 [facility] Out[facility] Encounter [id number] Beata FAUST 12/16 [facility] OFFICE O/P EST MOD 30 MIN [id number] Diagnos is: ICD-10- CM M25.552 Pain in left hip FURCOLO,TI NA 01/14 [facility] Out[facility] Encounter [id number] 03/02 [facility] OFFICE O/P EST MOD 30 MIN [id number] Diagnos is: ICD-10- CM F17.200 Nicotin e depende nce, unspeci fied, uncompl icated FURCOLO,TI NA 03/22 [facility] QNHP OL DIG ASSMT&MGMT 5-10 [id number] Diagnos is: ICD-10- CM J45.998 Other asthma Leandro DAO ESSLULU 03/24 [facility] [place] [place] QNHP OL DIG ASSMT&MGMT 5-10 [id number] Diagnos is: ICD-10- CM Z51.81 Encount er for therape utic drug level monitor DAVINA Donovan 03/29 [place] [facility] Outpatient Encounter [id number] 06/08 [facility] OFF/OP EST MAY X REQ PHY/QHP [id number] Diagnos is: ICD-10- CM 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 Holly Huang 06/08 [facility] [place] INTRM OPH EXAM EST PATIENT [id number] Diagnos is: ICD-10- CM 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, bilater MICHAEL Dodd 06/08 [facility] [place] Outpatient Encounter [id number] 09/07 [facility] OFFICE O/P EST HI 40 MIN [id number] Diagnos is: ICD-10- CM F17.200 Nicotin e depende nce, unspeci fied, uncompl icated FURCOLO,TI NA 10/06 [facility] Outpatient Encounter [id number] 10/06 [facility] PH1 ASSMT&MGMT NQHP 11-20 [id number] Diagnos is: ICD-10- CM F41.9 Anxiety disorde r, unspeci fiVANNA Pruett RTNEY R 10/06 [facility] [place] [facility] PSYTX W PT 45 MINUTES [id number] Diagnos is: ICD-10- CM F43.9 Reactio n to severe stress, unspeci fied VANNA CHANCE RTNEY R 10/21 [facility] [place] [facility] [place] Outpatient Encounter [id number] 11/09 [facility] [place] [facility] [place] [facility] TELEHEALTH FACILITY FEE [id number] Diagnos is: ICD-10- CM G47.30 Sleep apnea, unspeci fied NIDHI,FREDE JUAN ALBERTO 11/29 [facility] [place] [facility] (631GE) EDU&TRN PT SELF-MGMT NQHP 1 [id number] Diagnos is: ICD-10- CM G47.30 Sleep apnea, unspeci fied NIDHI,FREDE JUAN ALBERTO 11/29 [facility] (631GE) Social History Combined list of available smoking, tobacco, and other social history from Department of Defense and Veterans Affairs facilities. Social History Type Response Date Comment Source Tobacco smoking status [facility] VA-TOBACCO NEVER USED CIGARETTES 10/06/2024 [facility] [place] [facility] History of tobacco use VA-TOBACCO USE FORMER OTHER TYPE 10/06/2024 chewing tobacco [facility] [place] [facility] History of tobacco use VA-TOBACCO NEVER USED 10/15/2023 [facility] [place] [facility] History of tobacco use VA-TOBACCO DOESNT USE WI 30 MIN WAKEUP 08/01/2021 [facility] [place] [facility] History of tobacco use [facility] tobacco use [facility]-TOBACCO USE MED NO 07/19/2019 [facility] [place] [facility] History of tobacco use CURRENT SMOKELESS TOBACCO USER 04/21/2018 [facility] [place] [facility] History of tobacco use CURRENT SMOKELESS TOBACCO USER 09/16/2017 [facility] History [facility] tobacco use CURRENT SMOKER 10/01/2016 [facility] History of tobacco use LIFETIME NON-TOBACCO USER 07/07/2013 non-tobacco user [facility] Plan of Care List of future care activities from Department of Veterans Affairs facilities. Additional future care activities may be listed in the Assessment and Plan section. Date/Time Care Activity Care Activity Detail Henryi ty 12/14/2024 AMBULATORY - PSYCHIATRY [facility]
--- OUTSIDE RECORDS SUMMARY | 2024-12-07 10:23 | XMS_ITS | Encounter Summary ---
Author Name [facility] [facility] [place] Address [address] [place] [address] Care Team Providers Care Shaft Sinker Name Role Phone CARSON KIM Primary Care Provider Unavailabl e Insurance Providers: All historical and current Section Date Range: From patient's date of to the date document was created. This section includes the names of all active insurance providers for the patient. Insurance Provider Type of Coverage Plan Name Start of Policy Coverage End of Policy Coverage Group Number Member ID Insurance Provider's Telephone Number Policy Cartwright's Name Patient's Relationship to Policy Cartwright CAREMARK PRESCRIPT ION HNE ACTIV E FAMIL Y Mar 22, 2023 [id number] KATELYNN BLACK PATIENT [employer] S[employer]IP[employer] ([id number]) PRESCRIPT ION [facility] Aug 26, 2020 [id number] HANKLaura,KATELYNN PHEN PATIENT [employer] CE ORGANIZAT ION HEALT H [facility] Sep 22, 2023 [id number] WAYNE,KATELYNN PHEN PATIENT OPTUM RX PRESCRIPT ION HNE HMO Sep 22, 2024 HNE [id number] WAYNE,KATELYNN PHEN PATIENT OPTUM RX PRESCRIPT ION [address] PILGR IM January 20, 2023 NONE [id number] [phone] HANKS,KATELYNN PHEN PATIENT OPTUM RX PRESCRIPT ION [address] PILGR IM* January 20, 2023 NONE [id number] [phone] KATELYNN BLACK PATIENT UMR PREFERRED PROVIDER ORGANIZAT ION (PPO) HEALT Hang MASON [place] January 20, 2023 [id number] [phone] KATELYNN BLACK PATIENT Selected Encounter This section includes the information on record at [place] for the Encounter. Date/Time Encounter Type Encounter Description Reason Provider Source Nov 29, 2024 10:30 AM TELEHEALTH FACILITY FEE SLEEP MEDICINE ICD-10-CM G47.30 Sleep apnea, unspecified NIDHI,JACOB IHE Encounter Template Text not used by [place] Assessments - Encounter Diagnoses This section includes the primary and secondary diagnoses documented for the Encounter. Date/Time Primary/Secondary Diagnosis Diagnosis Name Provider Source Dec 02, 2024 01:00 PM PRIMARY Sleep apnea, unspecified YOSEPH MACKEY [facility] Plan of Treatment: Future Appointments (+ 6 months) and Future Tests (+/- 45 days) The Plan of Treatment section includes future care activities for the patient from all [place] treatmentfacilities. This section includes future appointments and future orders which are active, pending or scheduled. Future Appointments This section includes appointments that were scheduled to occur 6 months from the date of the Encounter, up to a maximum of 20 appointments. The data comes from all [place] treatment facilities. Appointment Date/Time Appointment Type Appointme nt Facility Name Dec 14, 2024 10:30 AM AMBULATORY - PSYCHIATRY [facility] Social History: Smoking Status (Most current) and Tobacco Use (All prior to encounter date) This section includes the most current, and the historical, smoking and tobacco- related health factors from the [place] facility where the Encounter took place. Current Smoking Status This section includes the most current smoking, or tobacco-related health factor, from the [place] facility where the Encounter took place. Date/Time Current Smoking Status Comment Facil ity Oct 06, 2024 02:00 PM VA-TOBACCO NEVER U SED CIGARETTES [facility] Tobacco Use History This section includes a history of the smoking, or tobacco-related health factors, that were collected on or before the date of the Encounter. The data comes from the [place] facility where the Encounter took place. Date/Time Smoking Status/Tobac co Use Comment Facility Oct 06, 2024 02:00 PM VA-TOBACCO NEVER USED OTHER TYPE [facility] [place] [facility] Oct 06, 2024 02:00 PM VA-TOBACCO USE FORMER OTHER TYPE chewing tobacco [facility] [place] [facility] Oct 15, 2023 10:00 AM VA-TOBACCO NEVER USED [facility] [place] [facility] Aug 01, 2021 03:30 PM VA-TOBACCO DOESNT USE WI 30 MIN WAKEUP [facility] [place] [facility] Aug 01, 2021 03:30 PM VA-TOBACCO USE 5 TO 15 YEARS [facility] [place] [facility] Aug 01, 2021 03:30 PM VA-TOBACCO USE ADVICE [facility] [place] [facility] Aug 01, 2021 03:30 PM 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 [facility] [place] [facility] Aug 01, 2021 03:30 PM VA-TOBACCO USE MED NO [facility] [place] [facility] Aug 01, 2021 03:30 PM VA-TOBACCO USER EVERY DAY [facility] [place] [facility] Jul 24, 2020 08:30 AM VA-TOBACCO NEVER USED [facility] [place] [facility] Jul 19, 2019 03:43 PM VA-TOBACCO DOESNT USE WI 30 MIN WAKEUP [place] [facility] [place] [facility] Jul 19, 2019 03:43 PM VA-TOBACCO USE 5 TO 15 YEARS [facility] [place] [facility] Jul 19, 2019 03:43 PM VA-TOBACCO USE ADVICE [facility] [place] [facility] Jul 19, 2019 03:43 PM 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 [facility] [place] [facility] Jul 19, 2019 03:43 PM VA-TOBACCO USE MED NO [facility] [place] [facility] Jul 19, 2019 03:43 PM VA-TOBACCO USER SOME DAYS [facility] [place] [facility] Apr 21, 2018 11:30 AM CURRENT SMOKELESS TOBACCO USER [facility] [place] [facility] Apr 21, 2018 11:30 AM V1-PT DECLINES REF TO TOBACCO CESS PRGM [facility] [place] [facility] Apr 21, 2018 11:30 AM V1-PT THINKING ABOUT QUIT TOBACCO USE [facility] Sep 16, 2017 01:25 PM CURRENT SMOKELESS TOBACCO USER [facility] Oct 01, 2016 01:03 PM [facility] Oct 01, 2016 01:03 PM QUIT TOBACCO USE > 7 YEARS AGO [facility] Jul 07, 2013 11:12 AM LIFETIME NON-TOBACCO USER non-tobacco [facility] Encounter Notes: All associated encounter notes This section contains the clinical notes associated to the Encounter. Date/Time Encounter Note(s) Provider Source Nov 29, 2024 10:30 AM TELEHEALTH NOTE: LOCAL TITLE: TELEHEALTH NOTE STANDARD TITLE: TELEHEALTH NOTE DATE OF NOTE: NOV 29, 2024@10:30 ENTRY DATE: DEC 02, 2024@12:58:44 AUTHOR: YOSEPH MACKEY EXP COSIGNER: URGENCY: STATUS: COMPLETED RICHARD BLACK checked-in with this wind commissioning technician at: [facility] WO CVT HOMESLEEP 1A PRO Etoile identified with 2 identifiers: [X] Full Name [X] Date of [X] Full SSN [ ] VA ID Card Patient consented to participate in the scheduled Clinical Video Telehealth (CVT) appointment: Yes Appointment Date/Time: Nov@10:30 Provider Name JACOB TERRELL Title RPSGT Conducted this appointment/ session from [facility] CVT HOMESLEEP 1A PT via Clinical Video Telehealth. DX per Telehealth Provider: Diagnosis: Sleep apnea, unspecified (ICD-10-CM G47.30) (P) Procedure: 12862-[id number] STUDY UNATT&RESP EFFT; Digital Media Buyer Stdy Unatnd w/ Resp Effort (1) Modifier TC-Technical Component 25093-EHC&TRN PT SELF-MGMT NQHP 1; Educ/Train Ind,Ea 30 min (1) [id number] FACILITY FEE-PATIENT SITE Additional Information: Does Clinical Video Telehealth (CVT) synchronous visit require Dermatology Imaging? NO /caryn/ YOSEPH MACKEY TELEHEALTH CLINICAL ELEMENTARY SCHOOL SCIENCE TEACHER Signed: 12/02/2024 13:00 [facility]
--- OUTSIDE RECORDS SUMMARY | 2024-12-07 10:23 | XMS_ITS | Encounter Summary ---
Author Name [facility] [place] Address [address] [place] [address] Care Team Providers Care Shafting Worker Name Role Phone CARSON KIM Primary Care [...] E FAMIL Y Mar 22, 2023 [id number] WAYNE,KATELYNN PUTNAM PATIENT [employer] ([id number]) PRESCRIPT ION GIC Aug 26, 2020 [id number] HANKS,KATELYNN PHEN PATIENT [employer] CE ORGANIZAT ION HEALT H [facility] Sep 22, 2023 [id number] [phone] WAYNE,KATELYNN PHEN PATIENT OPTUM RX PRESCRIPT ION HNE HMO Sep 22, 2024 HNE [id number] WAYNE,KATELYNN PHEN PATIENT OPT[employer] RX PRESCRIPT ION [address] PILGR IM January 20, 2023 NONE [id number] HANKS,KATELYNN PHEN PATIENT OPTUM RX PRESCRIPT [address]ITA [address] RD PILGR IM* January 20, 2023 NONE [id number] [phone] KATELYNN BLACK PATIENT UMR PREFERRED PROVIDER ORGANIZAT ION (PPO) HEALTom Hang ELIZABETH ISABELLA ND January 20, 2023 [id number] [phone] KATELYNN BLACK PATIENT Selected Encounter This section includes the information on record at [place] for the Encounter. Date/Time Encounter Type Encounter Description Reason Pro vider Source Nov 09, 2024 07:58 AM Outpatient Encounter PCMTX INDIV IHE Encounter Template Text not used by [place] Plan of Treatment: Future Appointments (+ 6 months) and Future Tests (+/- 45 days) The Plan of Treatment section includes future care activities for the patient [facility] [place] [facility] This section includes future appointments and future orders which are active, pending or scheduled. Future Appointments This section includes appointments that were scheduled to occur 6 months from the date of the Encounter, up to a maximum of 20 appointments. The data comes from all [facility]. Appointment Date/Time Appointment Type Appointme nt Facility Name Nov 29, 2024 10:30 AM AMBULATORY - MEDICINE [facility] Nov 29, 2024 10:31 AM AMBULATORY - MEDICINE [facility] Dec 14, 2024 10:30 AM AMBULATORY - PSYCHIATRY [facility] Active, Pending, and Scheduled Orders This section includes a listing of several types of active, pending, and scheduled orders, including clinic medications orders, diagnostic test orders, procedure orders and consult orders; where the start date of the order is 45 days before the date of the Encounter or 45 days after the date of theEncounter. The data comes from all [facility]. Test Date/Time Test Type Test Details Facility Name Oct 06, 2024 03:01 PM Consult Order COMMUNITY CARE-ORTHO SURGICAL Cons Disability Services Coord[facility] Oct 06, 2024 03:01 PM Consult Order COMMUNITY CARE-PULMONARY Cons Disability Services Coordinator's Choice [facility] Social History: Smoking Status (Most current) and Tobacco Use (All prior to encounter date) This section includes the most current, and the historical, smoking and tobacco- related health factors from the [place] facility where the Encounter took place. Current Smoking Status This section includes the most current smoking, or tobacco-related health factor, from the [place] facility where the Encounter took place. Date/Time Current Smoking Status Comment Henry ramsey Oct 06, 2024 02:00 PM VA-TOBACCO NEVER U SED CIGARETTES [facility] Tobacco Use History This section includes a history of the smoking, or tobacco-related health factors, that were collected on or before the date of the Encounter. The data comes from the [place] facility where the Encounter took place. Date/Time Smoking Status/Tobac co Use Comment Facility Oct 06, 2024 02:00 PM VA-TOBACCO NEVER USED OTHER TYPE [facility] [place] [facility] Oct 06, 2024 02:00 PM VA-TOBACCO USE FORMER OTHER TYPE chewing tobacco [facility] [place] [facility] Oct 15, 2023 10:00 AM VA-TOBACCO NEVER USED [facility] [place] [facility] Aug 01, 2021 03:30 PM VA-TOBACCO DOESNT USE WI 30 MIN WAKEUP [facility] [place] [facility] Aug 01, 2021 03:30 PM VA-TOBACCO USE 5 TO 15 YEARS [facility] [place] [facility] Aug 01, 2021 03:30 PM VA-TOBACCO USE ADVICE [facility] [place] [facility] Aug 01, 2021 03:30 PM 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 [facility] [place] [facility] Aug 01, 2021 03:30 PM VA-TOBACCO USE MED NO [facility] [place] [facility] Aug 01, 2021 03:30 PM VA-TOBACCO USER EVERY DAY [facility] [place] [facility] Jul 24, 2020 08:30 AM VA-TOBACCO NEVER USED [facility] [place] [facility] Jul 19, 2019 03:43 PM VA-TOBACCO DOESNT USE WI 30 MIN WAKEUP [facility] [place] [facility] Jul 19, 2019 03:43 PM VA-TOBACCO USE 5 TO 15 YEARS [facility] [place] [facility] Jul 19, 2019 03:43 PM VA-TOBACCO USE ADVICE [facility] [place] [facility] Jul 19, 2019 03:43 PM 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 [facility] Jul 19, 2019 03:43 PM VA-TOBACCO USE MED NO [facility] Jul 19, 2019 03:43 PM VA-TOBACCO USER SOME DAYS [facility] Apr 21, 2018 11:30 AM CURRENT SMOKELESS TOBACCO USER [facility] Apr 21, 2018 11:30 AM V1-PT DECLINES REF TO TOBACCO CESS PRGM [facility] Apr 21, 2018 11:30 AM V1-PT THINKING ABOUT QUIT TOBACCO USE [facility] Sep 16, 2017 01:25 PM CURRENT SMOKELESS TOBACCO USER [facility] Oct 01, 2016 01:03 PM CURRENT SMOKER [facility] Oct 01, 2016 01:03 PM QUIT TOBACCO USE > 7 YEARS AGO [facility] Jul 07, 2013 11:12 AM LIFETIME NON-TOBACCO USER non-tobacco user [facility] Encounter Notes: All associated encounter notes This section contains the clinical notes associated to the Encounter. Date/Time Encounter Note(s) Provider Source Nov 09, 2024 07:58 AM ADMINISTRATIVE NOTE: LOCAL TITLE: ADMINISTRATIVE NOTE STANDARD TITLE: ADMINISTRATIVE NOTE DATE OF NOTE: NOV 09, 2024@07:58 ENTRY DATE: NOV 09, 2024@07:58:21 AUTHOR: JC ERIC EXP COSIGNER: URGENCY: STATUS: COMPLETED ADMINISTRATIVE NOTE Has ADDENDA LISA spoke with regarding cancelation of appointment today 11/09/[address] Lyudmila Boss due to provider unavailability. Daggett informed that the provider will reach back out to reschedule and the availability of WIC if services are needed. /caryn/ JC GONZALEZ Signed: 11/09/2024 07:59 11/17/2024 ADDENDUM STATUS: COMPLETED [facility] TELEPHONE NOTE DURATION: 3 mins Doughnut Machine Operator Helper called and reached Daggett and apologized for having to cancel [facility] apt last week due to mortgage or loan underwriter being out sick. He said that he understood. He was rescheduled for 11/23 at 10am. /caryn/ LYUDMILA BOSS, PhD STAFF PSYCHOLOGIST Signed: 11/17/2024 12:35 JC [facility]L [facility]
--- OUTSIDE RECORDS SUMMARY | 2024-12-07 10:24 | XMS_ITS | Encounter Summary ---
Author Name [facility] [place] Organization [place] Address [address] [place] [id number] Care Team Providers Care Seat Covers Trimmer Name Role Phone CARSON KIM Primary Care [...] E FAMIL Y Mar 22, 2023 [id number] [phone] KATELYNN BLACK PATIENT [employer] ([id number]) PRESCRIPT ION GIC Aug 26, 2020 [id number] [phone] WAYNE,KATELYNN PHEN PATIENT [employer] [facility] Nadanu [facility] CE ORGANIZAT ION HEALT H [facility] Sep 22, 2023 [id number] KATELYNN BLACK PHEN PATIENT [employer] RX PRESCRIPT ION HNE HMO Sep 22, 2024 HNE [id number] KATELYNN BLACK PHEN PATIENT [employer] RX PRESCRIPT ION [address] PILGR IM January 20, 2023 NONE [id number] HANKS,KATELYNN PHEN PATIENT [employer] RX PRESCRIPT ION [address] PILGR IM* January 20, 2023 NONE [id number] KATELYNN BLACK PATIENT [employer] PREFERRED PROVIDER ORGANIZAT ION (PPO) HEALT Hang MASON ND January 20, 2023 [id number] [phone] KATELYNN BLACK PATIENT Selected Encounter This section includes the information on record at [place] for the Encounter. Date/Time Encounter Type Encounter Description Reason Provider Source Nov 29, 2024 10:31 AM EDU&TRN PT SELF-MGMT NQHP 1 SLEEP MEDICINE ICD-10-CM G47.30 Sleep apnea, unspecified NIDHI,JACOB IHE Encounter Template Text not used by [place] Assessments - Encounter Diagnoses This section includes the primary and secondary diagnoses documented for the Encounter. Date/Time Primary/Secondary Diagnosis Diagnosis Name Provider Source Nov 29, 2024 01:11 PM PRIMARY Sleep apnea, unspecified [facility] [place] Plan of Treatment: Future Appointments (+ 6 months) and Future Tests (+/- 45 days) The Plan of Treatment section includes future care activities for the patient from all [place] treatmentfacilities. This section includes future appointments and future orders which are active, pending or scheduled. Future Appointments This section includes appointments that were scheduled to occur 6 months from the date of the Encounter, up to a maximum of 20 appointments. The data comes from all [place] treatment facilities. Appointment Date/Time Appointment Type Appointme nt Facility Name Dec 14, 2024 10:30 AM AMBULATORY - PSYCHIATRY DE [facility] Encounter Notes: All associated encounter notes This section contains the clinical notes associated to the Encounter. Date/Time Encounter Note(s) Provider Source Nov 29, 2024 10:31 AM SLEEP MEDICINE CON SULT: LOCAL TITLE: SLEEP STUDY/CONSULT REPORT STANDARD TITLE: SLEEP MEDICINE CONSULT DATE OF NOTE: NOV 29, 2024@10:31 ENTRY DATE: NOV 29, 2024@13:11:39 AUTHOR: JACOB TERRELL EXP COSIGNER: URGENCY: STATUS: COMPLETED SLEEP STUDY/CONSULT REPORT Has ADDENDA Service Location [facility] [place] [address] Device Information DeviceName: [id number] DeviceSerialNumber: [id number] Diagnosis: G47.30 - Sleep apnea, unspecified Education was provided about what sleep apnea is, how home sleep apnea testing is used to diagnose sleep apnea, and what treatment options are most commonly used to treat it. Patient attended an individual appointment for instruction on use of home sleep testing equipment. Device was given to patient with written instructions and contact information included. All questions were answered and the patient expressed understanding of the provided instructions and care plan. Other notes loud snoring, dry throat in a.m., double uvula non VA study in past, no results. few drink before bed to help with sleep. 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 Patient verbal consent obtained. Location and emergency point of contact and/or number confirmed. verbalized consent for this CVT visit: Yes /caryn/ JOSE VEGA DIRECTOR OF PUPIL PERSONNEL PROGRAM Signed: 11/29/2024 13:12 JACOB TERRELL [facility] ([id number])
== END 2024-12-07 10:19 | disposition home or self-care (01) ==
LOC: HO.HPS 09:32
PROVIDERS: PCP Internal Medicine; Visit Provider Internal Medicine
DX: J45.909 Unspecified asthma, uncomplicated (principal)
CPT/HCPCS: 94010; 99213

== ENCOUNTER → 2024-12-07 10:32 | Outpatient (BNV) | payer OTHER, SELFPAY | PROVIDERS: PCP Internal Medicine; Referring Provider Internal Medicine; Visit Provider Radiology Diagnostic Radiology | DX: J45.909 Unspecified asthma, uncomplicated (principal) | CPT/HCPCS: 71046 ==

== ENCOUNTER 2025-01-05 09:04 | Outpatient (AMB) | payer OTHER, SELFPAY ==
[2025-01-05 09:20] VITALS: BP 122/78; PULSE 86; O2SAT 99; BMI 32.4
--- NOTE | 2025-01-05 09:20 | A.OFFVIS_ITS ---
Vital Signs 01/05/25 09:20 Height 5 ft 11 in Weight 232 lb BMI 32.4 BP 122/78 Blood Pressure Location Lt brachial Position Sitting Pulse 86 Pulse Source Doppler Pulse Oximetry (%) 99 Oxygen Delivery Method Room Air Intake Visit Reasons: Shortness of breath Intake Note: Patient is here to follow up on SOB, patient stated symptoms have improved Allergies No Known Allergies Allergy (Verified 01/05/25 09:35) Medication List - Last Reconciled 01/05/25 by Omer Carbajal MD albuterol sulfate 90 mcg/actuation 0 mcg inhalation budesonide-formoterol 160-4.5 mcg/actuation 2 puffs inhalation BID 30 days tiotropium bromide 2.5 mcg/actuation (Spiriva Respimat) 2 puffs inhalation QAM 30 days HPI HPI Shortness of breath: Details: PATIENT IS HERE TODAY FOR A FOLLOW-UP FOR HIS BRONCHIAL ASTHMA. PATIENT REPORTS HE HAS BEEN FEELING WELL AND DENIES ANY COUGH OR WHEEZING BUT DOES HAVE OCCASIONAL CHEST TIGHTNESS. USES SYMBICORT 160 -4.5 MCG 2 PUFFS DAILY AND HAS ALSO BEEN USING SPIRIVA RESPIMAT 2.5 MCG DAILY A RESCUE INHALER WHEN HE FEELS THE CHEST TIGHTNESS STARTING. PATIENT EDUCATED ON USE OF ALBUTEROL SULFATE 90 MCG 2 PUFFS EVERY 4-6 HOURS NEEDED FOR SHORTNESS OF BREATH OR CHEST TIGHTNESS AND THAT SPIRIVA RESPIMAT SHOULD NOT BE USED A RESCUE INHALER. 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 Cognitive needs: No Hearing needs: No Vision needs: No Review of Systems Const All systems reviewed & are unremarkable except as noted in HPI and below Eyes Reports no additional complaints ENT Reports nasal congestion (Mild off and on) Card Denies chest pain, Denies syncope, Denies irregular heart rhythm and Denies leg edema Resp Reports as per HPI GI Reports no additional complaints Reports no additional complaints Musc Reports back pain Skin/Breast Reports system reviewed and no additional complaints, except as documented Neuro Reports no additional complaints and Denies syncope Psych Reports no additional complaints Endo Reports no additional complaints Physical Exam Vital Signs: Last Vital Signs Pulse 86 01/05/25 09:20 BP 122/78 01/05/25 09:20 Pulse Ox 99 01/05/25 09:20 Oxygen Delivery Method Room Air 01/05/25 09:20 BMI result Body Mass Index 32.4 Results Reviewed Results Reviewed: PEAK FLOW READINGS OBTAINED IN OFFICE. PEAK FLOW 525 Assessment & Plan Assessment & Plan (1) Asthma: Comment: PULMONARY FUNCTION TEST IN 2022 CONFIRMED THAT HE HAS MILD TO MODERATE OBSTRUCTIVE PATTERN WHICH IMPROVES AFTER BRONCHODILATOR THERAPY. THE RESULTS WERE CONSISTENT WITH BRONCHIAL ASTHMA. IN HIS CASE MOST LIKELY BRONCHIAL ASTHMA IS RELATED TO EXERCISE AND, UNSPECIFIED TRIGGERS. AT PRESENT IT IS WELL CONTROLLED. PEAK FLOW 525 ML. HE NEEDS MORE EDUCATION. Code(s): J45.909 - Unspecified asthma, uncomplicated Category: Medical Plan: ADVISED TO USE SYMBICORT 160-4.52 PUFFS B.I.D. REGULARLY. DO NOT USE SPIRIVA RESPIMAT A RESCUE INHALER. IF SYMPTOMS ARE NOT FULLY CONTROLLED WITH SYMBICORT THEN HE MAY USE SPIRIVA RESPIMAT 2 INHALATIONS JUST ONCE A DAY. ALBUTEROL HFA 2 PUFFS Q 4-6 HOURS P.R.N.. PATIENT ALSO PROVIDED WITH A PEAK FLOW METER, TO MONITOR HIS PEAK FLOWS ON A DAILY BASIS. Medications: New albuterol sulfate 90 mcg/actuation 2 puffs inhalation Q4-6H 30 days PRN 8.5 grams 5RF shortness of breath or wheezing peak flow meter As directed 1 ea 0RF Coding Level of Care Code Est Pt Level 3 (48077) Diagnoses Asthma J45.909
--- OUTSIDE RECORDS SUMMARY | 2025-01-05 09:47 | XMS_ITS | Continuity of Care Document ---
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 s/p IR ablation on 03/01/24 at [facility] [place] [facility] Posttraumatic stress disorder Active Condition [facility] [place] [facility] Spondylolisthesis Active Condition [facility] [place] [facility] Diagnosis: ICD-10-CM F43.12 Post-traumatic stress disorder, chronic Active Diagnosis [facility] [place] [facility] Diagnosis: ICD-10-CM G47.30 Sleep apnea, unspecified Active Diagnosis [place] [facility] Diagnosis: ICD-10-CM F43.9 Reaction to severe stress, unspecified Active Diagnosis [facility] [place] [facility] Diagnosis: ICD-10-CM J45.998 Other asthma Active Diagnosis [facility] [place] [facility] Diagnosis: ICD-10-CM F41.9 Anxiety disorder, unspecified Active Diagnosis [facility] [place] Diagnosis: ICD-10-CM F17.200 Nicotine dependence, unspecified, uncomplicated Active Diagnosis [facility] [place] Diagnosis: ICD-10-CM H16.143 Punctate keratitis, bilateral Active Diagnosis [facility] [place] [facility] Diagnosis: ICD-10-CM Z71.89 Other specified counseling Active Diagnosis [facility] [place] [facility] Diagnosis: ICD-10-CM Z51.81 Encounter for therapeutic drug level monitoring Active Diagnosis [place] Diagnosis: ICD-10-CM M25.552 Pain in left hip Active Diagnosis [facility] [place] [facility] Medications Combined list of outpatient medications from Department of Defense and Veterans Affairs facilities.Medications provided include 1) outpatient medications from the last 15 months, and 2) patient-reported medications. Medication Details Route Status Patient Instructions Prescription Expires Prescription Number Last Dispense Date Ordering Provider Order Date Order Qty Source ALBUTEROL 90MCG/ACTUA T (CFC-F) INHL,ORAL,8 .5GM DOSE COUNTER INHALE 2 PUFFS BY MOUTH EVERY 6 HOURS NEEDED FOR BRONCHOS [facility]M RESPIR ATORY (INHAL ATION) 10/15/2024 [id number] ANDRÉS RINCON AMPAUL JAWED 2023 1 [facility] BUDESONIDE 160MCG/FORM OTEROL FUM 4.5MCG/SPRA Y INHL,ORAL,1 0.2GM INHALE 2 PUFFS BY MOUTH TWICE DAILY - RINSE MOUTH AFTER USE RESPIR ATORY (INHAL ATION) SUSPEND ED 12/08/2025 [id number] 5 [facility] 1 [facility] FLUTICASONE 500MCG/SALM ETEROL 50MCG INHL,ORAL,D ISKUS,60 INHALE 1 PUFF BY MOUTH TWICE DAILY - RINSE MOUTH AFTER USE RESPIR ATORY (INHAL ATION) 10/15/2024 [id number] 4 [facility] 2023 1 [facility] [place] HYPROMELLOS E 0.3% GEL,OPH APPLY 1 TO 2 DROPS INTO THE LEFT EYE AT BEDTIME OPHTHA LMIC 07/08/2024 [id number] Jayda WILSON 2023 1 [facility] PEG-400 0.4%/PROPYL EDILBERTO GLYCOL 0.3% SOLN,OPH INSTILL 1 DROP INTO THE LEFT EYE FOUR TIMES A DAY FOR DRY EYE OPHTHA LMIC ACTIVE 06/09/2025 [id number] 5 Jayda WILSON 2023 15 [facility] [place] [facility] [facility] TIOTROPIUM 2.5MCG/ACTU AT INHL,ORAL,6 0D,4GM INHALE 2 PUFFS BY MOUTH ONCE DAILY RESPIR ATORY (INHAL ATION) SUSPEND ED 12/08/2025 [id number] 5 ANDRÉS KWONG AMMAD S 2024 1 [facility] Allergies, Adverse Reactions, Alerts Combined list of allergies from Department of Defense and Veterans Affairs facilities. It does not include entries that were removed or entered in error. Substance Category Reaction Severity Reaction type Status Date Reported Comments Source POISON NILAM Propensity to adverse reaction (finding) Itching active 9 [facility] Immunizations Combined list of available immunizations from the Department of Defense and Veterans Affairs facilities. Immunization Series Date Given Administered By Site Reaction Lot Number CVX Code Drug Account [employer] Status Comments Source COVID-19 (MODERNA), MRNA, LNP-S, PF, 100 MCG/0.5 ML DOSE 2 2020 207 complet ed [facility] COVID-19 (MODERNA), MRNA, LNP-S, PF, 100 MCG/0.5 ML DOSE 1 2020 207 complet ed [facility] INFLUENZA, UNSPECIFIED FORMULATION 2019 88 complet ed [facility] [place] INFLUENZA, INJECTABLE, QUADRIVALENT, PRESERVATIVE FREE 2018 150 complet ed Site: Right Deltoid [facility] [place] [facility] PNEUMOCOCCAL POLYSACCHARID E PPV23 2016 33 complet ed [facility] DTAP 2016 20 complet ed Site: Left Deltoid [facility] HPV, QUADRIVALENT 2013 62 complet ed Completed Series, # 3 OF 3; #1 AND #2 RECEIVED WHILE IN [facility] HPV, UNSPECIFIED FORMULATION 2013 137 complet ed [facility] TD(ADULT) UNSPECIFIED FORMULATION 2008 139 complet ed [facility] Results Combined list of recent chemistry, hematology and other laboratory results from Department of Defense and Veterans Affairs, ranging from 15 months to all on record, depending upon the facility. Order Name Results Value Reference Range Date Interpretation Specimen Comments Source PT & INR (PROTIME ) INR IN PLATELET POOR PLASMA BY COAGULATIO N ASSAY 1.1 01/14 Specimen Type: PLASMA No comment entered. Ordering Provider: JIM KIM Report Released Date/Time: Jan 15, 2024 10:27 AM Reporting Lab: [facility] [address] [facility] [address] Performing Lab: [facility] [address] [facility] [address] [facility] [place] [facility] PT & INR (PROTIME ) PROTHROMBI N TIME (PT) 12.2 s 10.0 - 13.1 01/14 Specimen Type: PLASMA No comment entered. Ordering Provider: JIM KIM Report Released Date/Time: Jan 15, 2024 10:27 AM Reporting Lab: [facility] [place] [facility] [address] [facility] [address] Performing Lab: [facility] [address] [facility] [address] [facility] [place] [facility] PTT APTT IN PLATELET POOR PLASMA BY COAGULATIO N ASSAY 34.2 s 26.0 - 36.0 01/14 Specimen Type: PLASMA No comment entered. Ordering Provider: JIM KIM Report Released Date/Time: Jan 15, 2024 10:27 AM Reporting Lab: [facility] [place] [facility] [address] [facility] [address] Performing Lab: [facility] [place] [facility] [address] [facility] [address] [facility] [place] [facility] BASIC METABOLI C PANEL (fasting ) UREA NITROGEN [MASS/VOLU ME] IN SERUM OR PLASMA 13 mg/dL 7 - 25 01/14 Specimen Type: SERUM No comment entered. Ordering Provider: JIM KIM Report Released Date/Time: Jan 15, 2024 10:27 AM Reporting Lab: [facility] [place] [facility] [address] [facility] [address] Performing Lab: [facility] [place] [facility] [address] [facility] [address] [facility] BASIC METABOLI C PANEL (fasting ) GLUCOSE [MASS/VOLU ME] IN SERUM OR PLASMA 88 mg/dL 65 - 100 01/14 Specimen Type: SERUM No comment entered. Ordering Provider: JIM KIM Report Released Date/Time: Jan 15, 2024 10:27 AM Reporting Lab: [facility] [place] [facility] [address] [facility] [address] Performing Lab: [facility] [place] [facility] [address] [facility] [address] [facility] [facility] BASIC METABOLI C PANEL (fasting ) SODIUM [MOLES/VOL UME] IN SERUM OR PLASMA 141 mmol/L 135 - 145 01/14 Specimen Type: SERUM No comment entered. Ordering Provider: JIM KIM Report Released Date/Time: Jan 15, 2024 10:27 AM Reporting Lab: [facility] [place] [facility] [address] [facility] [address] Performing Lab: [facility] [place] [facility] [address] [facility] [address] [facility] [facility] BASIC METABOLI C PANEL (fasting ) POTASSIUM [MOLES/VOL UME] IN SERUM OR PLASMA 4.5 mmol/L 3.5 - 5.0 04/25 /2024 Specimen Type: SERUM No comment entered. Ordering Provider: JIM KIM Report Released Date/Time: Jan 15, 2024 10:27 AM Reporting Lab: [facility] [place] [facility] [address] [facility] [address] Performing Lab: [facility] [address] [facility] [address] [facility] BASIC METABOLI C PANEL (fasting ) CHLORIDE [MOLES/VOL UME] IN SERUM OR PLASMA 107 mmol/L 100 - 110 01/14 Specimen Type: SERUM No comment entered. Ordering Provider: JIM KIM Report Released Date/Time: Jan 15, 2024 10:27 AM Reporting Lab: [facility] [place] [address] [address] Performing Lab: [facility] [place] [address] [address] [facility] BASIC METABOLI C PANEL (fasting ) CARBON DIOXIDE, TOTAL [MOLES/VOL UME] IN SERUM OR PLASMA 27 meq/L 20 - 30 01/14 Specimen Type: SERUM No comment entered. Ordering Provider: JIM KIM Report Released Date/Time: Jan 15, 2024 10:27 AM Reporting Lab: [facility] [place] [address] [address] Performing Lab: [facility] [place] [facility] [address] [facility] [address] [facility] BASIC METABOLI C PANEL (fasting ) CREATININE [MASS/VOLU ME] IN SERUM OR PLASMA 1.17 mg/dL 0.50 - 1.40 01/14 Specimen Type: SERUM No comment entered. Ordering Provider: JIM KIM Report Released Date/Time: Jan 15, 2024 10:27 AM Reporting Lab: [facility] [place] [place] [address] [address] Performing Lab: [facility] [place] [address] [address] [facility] BASIC METABOLI C PANEL (fasting ) GLOMERULAR FILTRATION RATE/1.73 SQ M.PREDICTE D [VOLUME RATE/AREA] IN SERUM, PLASMA OR BLOOD BY CREATININE -BASED FORMULA (CKD-EPI 2020) 83 mL/min 60 01/14 Specimen Type: SERUM No comment entered. Ordering Provider: JIM KIM Report Released Date/Time: Jan 15, 2024 10:27 AM Reporting Lab: [facility] [place] [address] [address] Performing Lab: [facility]ITAL[facility] MONTGOMERYN [facility]ITALCHUSE[address] [phone] [place], [place] [address] [facility] CBC AND DIFF (AUTO) LEUKOCYTES [#/VOLUME] IN BLOOD BY AUTOMATED COUNT 5.83 10*3/uL 4.50 - 11.00 01/14 Specimen Type: BLOOD No comment entered. Ordering Provider: JIM KIM Report Released Date/Time: Jan 15, 2024 10:27 AM Reporting Lab: [facility] [place] [facility] [address] [facility] [address] Performing Lab: [facility] [address] [facility] CBC AND DIFF (AUTO) ERYTHROCYT ES [#/VOLUME] IN BLOOD BY AUTOMATED COUNT 5.50 10*6/uL 4.23 - 5.66 01/14 Specimen Type: BLOOD No comment entered. Ordering Provider: JIM KIM Report Released Date/Time: Jan 15, 2024 10:27 AM Reporting Lab: [facility]ITAL[facility] MONTGOMERYN [place] [address] [address] Performing Lab: [facility] [address] [facility] CBC AND DIFF (AUTO) HEMOGLOBIN [MASS/VOLU ME] IN BLOOD 16.1 g/dL 12.8 - 17 01/14 Specimen Type: BLOOD No comment entered. Ordering Provider: JIM KIM Report Released Date/Time: Jan 15, 2024 10:27 AM Reporting Lab: [facility] [place] [facility] [address] [facility] [address] Performing Lab: [facility] [place] [facility] [address] [facility] [address] [facility] [place] [facility] CBC AND DIFF (AUTO) HEMATOCRIT [VOLUME FRACTION] OF BLOOD BY AUTOMATED COUNT 45.8 39.2 - 50.4 01/14 Specimen Type: BLOOD No comment entered. Ordering Provider: JIM KIM Report Released Date/Time: Jan 15, 2024 10:27 AM Reporting Lab: [facility] [place] [facility] [address] [facility] [address] Performing Lab: [facility] [facility] [address] [facility] [address] [facility] [place] [facility] CBC AND DIFF (AUTO) MCV [ENTITIC VOLUME] BY AUTOMATED COUNT 83.3 fL 82 - 99 01/14 Specimen Type: BLOOD No comment entered. Ordering Provider: JIM KIM Report Released Date/Time: Jan 15, 2024 10:27 AM Reporting Lab: [facility] [place] [facility] [address] [facility] [address] Performing Lab: [facility] [place] [facility] [address] [facility] [address] [facility] [place] [facility] CBC AND DIFF (AUTO) MCHC [MASS/VOLU ME] BY AUTOMATED COUNT 35.2 g/dL 30.8 - 35.1 01/14 H Specimen Type: BLOOD No comment entered. Ordering Provider: JIM KIM Report Released Date/Time: Jan 15, 2024 10:27 AM Reporting Lab: [facility] [place] [facility] [address] [facility] [address] Performing Lab: [facility] [place] [facility] [address] [facility] [address] [facility] [place] [facility] CBC AND DIFF (AUTO) PLATELETS [#/VOLUME] IN BLOOD BY AUTOMATED COUNT 150 10*3/uL 140 - 360 01/14 Specimen Type: BLOOD No comment entered. Ordering Provider: JIM KIM Report Released Date/Time: Jan 15, 2024 10:27 AM Reporting Lab: [facility] [place] [facility] [address] [facility] [address] Performing Lab: [facility] [facility] [address] [facility] [address] [facility] [place] [facility] CBC AND DIFF (AUTO) ERYTHROCYT E DISTRIBUTI ON WIDTH [RATIO] BY AUTOMATED COUNT 12.6 12.0 - 16.0 01/14 Specimen Type: BLOOD No comment entered. Ordering Provider: JIM KIM Report Released Date/Time: Jan 15, 2024 10:27 AM Reporting Lab: [facility] [place] [facility] [address] [facility] [address] Performing Lab: [facility] [place] [address] [address] [facility] [place] [facility] CBC AND DIFF (AUTO) MONOCYTES [#/VOLUME] IN BLOOD BY AUTOMATED COUNT 0.39 10*3/uL 0.30 - 1.10 01/14 Specimen Type: BLOOD No comment entered. Ordering Provider: JIM KIM Report Released Date/Time: Jan 15, 2024 10:27 AM Reporting Lab: [facility] [place] [facility] [address] [facility] [address] Performing Lab: [facility] [place] [facility] [address] [facility] [address] [facility] [place] [facility] CBC AND DIFF (AUTO) MCH [ENTITIC MASS] BY AUTOMATED COUNT 29.3 pg 26.2 - 32.6 01/14 Specimen Type: BLOOD No comment entered. Ordering Provider: JIM KIM Report Released Date/Time: Jan 15, 2024 10:27 AM Reporting Lab: [facility] [place] [facility] [address] [facility] [address] Performing Lab: [facility] [place] [address] [address] [facility] [place] [facility] CBC AND DIFF (AUTO) NEUTROPHIL S/100 LEUKOCYTES IN BLOOD BY AUTOMATED COUNT 53.1 43.7 - 75.8 01/14 Specimen Type: BLOOD No comment entered. Ordering Provider: JIM KIM Report Released Date/Time: Jan 15, 2024 10:27 AM Reporting Lab: [facility] [place] [facility] [address] [facility] [address] Performing Lab: [facility] [place] [facility] [address] [facility] [address] [facility] [place] [facility] CBC AND DIFF (AUTO) LYMPHOCYTE S/100 LEUKOCYTES IN BLOOD BY AUTOMATED COUNT 36.9 14.0 - 42.3 01/14 Specimen Type: BLOOD No comment entered. Ordering Provider: JIM KIM Report Released Date/Time: Jan 15, 2024 10:27 AM Reporting Lab: [facility] [place] [address] [address] Performing Lab[facility] [place] [facility] [address] [facility] [address] [facility] [place] [facility] CBC AND DIFF (AUTO) MONOCYTES/ 100 LEUKOCYTES IN BLOOD BY AUTOMATED COUNT 6.7 5.1 - 13.7 01/14 Specimen Type: BLOOD No comment entered. Ordering Provider: JIM KIM Report Released Date/Time: Jan 15, 2024 10:27 AM Reporting Lab: [facility] [place] [address] [address] Performing Lab: [facility] [place] [facility] [address] [facility] [address] [facility] [place] [facility] CBC AND DIFF (AUTO) EOSINOPHIL S/100 LEUKOCYTES IN BLOOD BY AUTOMATED COUNT 2.1 0.4 - 6.8 01/14 Specimen Type: BLOOD No comment entered. Ordering Provider: JIM KIM Report Released Date/Time: Jan 15, 2024 10:27 AM Reporting Lab: [facility] [place] [address] [address] Performing Lab: [facility] [place] [address] [address] [facility] [place] [facility] CBC AND DIFF (AUTO) BASOPHILS/ 100 LEUKOCYTES IN BLOOD BY AUTOMATED COUNT 1.0 0.1 - 2.0 01/14 Specimen Type: BLOOD No comment entered. Ordering Provider: JIM KIM Report Released Date/Time: Jan 15, 2024 10:27 AM Reporting Lab: [facility] [place] [address] [address] Performing Lab: [facility] [place] [facility] [address] [facility] [address] [facility] [place] [facility] CBC AND DIFF (AUTO) NEUTROPHIL S [#/VOLUME] IN BLOOD BY AUTOMATED COUNT 3.10 10*3/uL 2.20 - 7.60 01/14 Specimen Type: BLOOD No comment entered. Ordering Provider: JIM KIM Report Released Date/Time: Jan 15, 2024 10:27 AM Reporting Lab: [facility] [place] [address] [address] Performing Lab: [facility] [place] [address] [address] [facility] [place] [facility] CBC AND DIFF (AUTO) LYMPHOCYTE S [#/VOLUME] IN BLOOD BY AUTOMATED COUNT 2.15 10*3/uL 1.00 - 3.20 01/14 Specimen Type: BLOOD No comment entered. Ordering Provider: JIM KIM Report Released Date/Time: Jan 15, 2024 10:27 AM Reporting Lab: [facility] [place] [facility] [address] [facility] [address] Performing Lab: [facility] [place] [facility] [address] [place] [address] [facility] [place] [facility] CBC AND DIFF (AUTO) EOSINOPHIL S [#/VOLUME] IN BLOOD BY AUTOMATED COUNT 0.12 10*3/uL 0.03 - 0.44 01/14 Specimen Type: BLOOD No comment entered. Ordering Provider: JIM KIM Report Released Date/Time: Jan 15, 2024 10:27 AM Reporting Lab: [facility] [place] [facility] [address] [facility] [address] Performing Lab: [facility] [facility] [address] [facility] [address] [facility] [place] [facility] CBC AND DIFF (AUTO) BASOPHILS [#/VOLUME] IN BLOOD BY AUTOMATED COUNT 0.06 10*3/uL 0.01 - 0.13 01/14 Specimen Type: BLOOD No comment entered. Ordering Provider: JIM KIM Report Released Date/Time: Jan 15, 2024 10:27 AM Reporting Lab: [facility] [place] [facility] [address] [facility] [address] Performing Lab: [facility] [place] [facility] [address] [facility] [address] [facility] [place] [facility] CBC AND DIFF (AUTO) IMMATURE GRANULOCYT ES/100 LEUKOCYTES IN BLOOD BY AUTOMATED COUNT 0.2 0.0 - 0.7 01/14 Specimen Type: BLOOD No comment entered. Ordering Provider: JIM KIM Report Released Date/Time: Jan 15, 2024 10:27 AM Reporting Lab: [facility] [facility] [address] [facility] [address] Performing Lab: [facility] [facility] [address] [facility] [address] [facility] [place] [facility] CBC AND DIFF (AUTO) IMMATURE GRANULOCYT ES [#/VOLUME] IN BLOOD 0.01 10*3/uL 0.00 - 0.06 01/14 Specimen Type: BLOOD No comment entered. Ordering Provider: JIM KIM Report Released Date/Time: Jan 15, 2024 10:27 AM Reporting Lab: [facility] [place] [facility] [address] [facility] [address] Performing Lab: [facility] [address] [address] [facility] [place] [facility] CBC AND DIFF (AUTO) LEUKOCYTES [#/VOLUME] IN BLOOD BY AUTOMATED COUNT 5.77 10*3/uL 4.50 - 11.00 10/10 Specimen Type: BLOOD No comment entered. Ordering Provider: SHAWN RINCON Report Released Date/Time: Sep 29, 2023 08:21 AM Reporting Lab: [facility] [place] [facility] [address] [facility] [address] Performing Lab: [facility] [place] [facility] [address] [facility] [address] [facility] [place] [facility] CBC AND DIFF (AUTO) ERYTHROCYT ES [#/VOLUME] IN BLOOD BY AUTOMATED COUNT 5.72 10*6/uL 4.23 - 5.66 10/10 H Specimen Type: BLOOD No comment entered. Ordering Provider: SHAWN RINCON Report Released Date/Time: Sep 29, 2023 08:21 AM Reporting Lab: [facility] [address] [facility] [address] Performing Lab: [facility] [address] [facility] [address] [facility] CBC AND DIFF (AUTO) HEMOGLOBIN [MASS/VOLU ME] IN BLOOD 16.5 g/dL 12.8 - 17 10/10 Specimen Type: BLOOD No comment entered. Ordering Provider: SHAWN RINCON Report Released Date/Time: Sep 29, 2023 08:21 AM Reporting Lab: [facility] [address] [facility] [address] Performing Lab: [facility] [address] [facility] [address] [facility] CBC AND DIFF (AUTO) HEMATOCRIT [VOLUME FRACTION] OF BLOOD BY AUTOMATED COUNT 48.2 39.2 - 50.4 10/10 Specimen Type: BLOOD No comment entered. Ordering Provider: SHAWN RINCON Report Released Date/Time: Sep 29, 2023 08:21 AM Reporting Lab: [facility] [address] [facility] [address] Performing Lab: [facility] [address] [facility] [address] [facility] CBC AND DIFF (AUTO) MCV [ENTITIC VOLUME] BY AUTOMATED COUNT 84.3 fL 82 - 99 10/10 Specimen Type: BLOOD No comment entered. Ordering Provider: SHAWN RINCON Report Released Date/Time: Sep 29, 2023 08:21 AM Reporting Lab: [facility] [place] [address] [facility] [address] Performing Lab: [facility] [facility] [address] [facility] [address] [facility] [place] [facility] CBC AND DIFF (AUTO) MCHC [MASS/VOLU ME] BY AUTOMATED COUNT 34.2 g/dL 30.8 - 35.1 10/10 Specimen Type: BLOOD No comment entered. Ordering Provider: SHAWN RINCON Report Released Date/Time: Sep 29, 2023 08:21 AM Reporting Lab: [facility] [place] [address] [address] Performing Lab: [facility] [place] [facility] [address] [facility] [address] [facility] [place] [facility] CBC AND DIFF (AUTO) PLATELETS [#/VOLUME] IN BLOOD BY AUTOMATED COUNT 147 10*3/uL 140 - 360 10/10 Specimen Type: BLOOD No comment entered. Ordering Provider: SHAWN RINCON Report Released Date/Time: Sep 29, 2023 08:21 AM Reporting Lab: [facility] [place] [facility] [address] [facility] [address] Performing Lab: [facility] [place] [facility] [address] [facility] [address] [facility] [place] [facility] CBC AND DIFF (AUTO) ERYTHROCYT E DISTRIBUTI ON WIDTH [RATIO] BY AUTOMATED COUNT 12.5 12.0 - 16.0 10/10 Specimen Type: BLOOD No comment entered. Ordering Provider: SHAWN RINCON Report Released Date/Time: Sep 29, 2023 08:21 AM Reporting Lab: [facility] [place] [address] [address] Performing Lab: [facility] [place] [facility] [address] [facility] [address] [facility] [place] [facility] CBC AND DIFF (AUTO) MONOCYTES [#/VOLUME] IN BLOOD BY AUTOMATED COUNT 0.43 10*3/uL 0.30 - 1.10 10/10 Specimen Type: BLOOD No comment entered. Ordering Provider: SHAWN RINCON Report Released Date/Time: Sep 29, 2023 08:21 AM Reporting Lab: [facility] [place] [facility] [address] [facility] [address] Performing Lab: [facility] [place] [facility] [address] [facility] [address] [facility] [place] CBC AND DIFF (AUTO) MCH [ENTITIC MASS] BY AUTOMATED COUNT 28.8 pg 26.2 - 32.6 10/10 Specimen Type: BLOOD No comment entered. Ordering Provider: SHAWN RINCON Report Released Date/Time: Sep 29, 2023 08:21 AM Reporting Lab: [facility] [place] [facility] [address] [facility] [address] Performing Lab: [facility] [place] [facility] [address] [facility] [address] [facility] [place] CBC AND DIFF (AUTO) NEUTROPHIL S/100 LEUKOCYTES IN BLOOD BY AUTOMATED COUNT 51.5 43.7 - 75.8 10/10 Specimen Type: BLOOD No comment entered. Ordering Provider: SHAWN RINCON Report Released Date/Time: Sep 29, 2023 08:21 AM Reporting Lab: [facility] [place] [facility] [address] [facility] [address] Performing Lab: [facility] [place] [facility] [address] [facility] [address] [facility] [place] [facility] CBC AND DIFF (AUTO) LYMPHOCYTE S/100 LEUKOCYTES IN BLOOD BY AUTOMATED COUNT 36.9 14.0 - 42.3 10/10 Specimen Type: BLOOD No comment entered. Ordering Provider: SHAWN RINCON Report Released Date/Time: Sep 29, 2023 08:21 AM Reporting Lab: [facility] [place] [facility] [address] [facility] [address] Performing Lab: [facility] [place] [facility] [address] [facility] [address] [facility] [place] [facility] CBC AND DIFF (AUTO) MONOCYTES/ 100 LEUKOCYTES IN BLOOD BY AUTOMATED COUNT 7.5 5.1 - 13.7 10/10 Specimen Type: BLOOD No comment entered. Ordering Provider: SHAWN RINCON Report Released Date/Time: Sep 29, 2023 08:21 AM Reporting Lab: [facility] [place] [facility] [address] [facility] [address] Performing Lab: [facility] [place] [facility] [address] [facility] [address] [facility] [place] CBC AND DIFF (AUTO) EOSINOPHIL S/100 LEUKOCYTES IN BLOOD BY AUTOMATED COUNT 2.9 0.4 - 6.8 10/10 Specimen Type: BLOOD No comment entered. Ordering Provider: SHAWN RINCON Report Released Date/Time: Sep 29, 2023 08:21 AM Reporting Lab: [facility] [place] [facility] [address] [facility] [address] Performing Lab: [facility] [place] [facility] [address] [facility] [address] [facility] [place] [facility] CBC AND DIFF (AUTO) BASOPHILS/ 100 LEUKOCYTES IN BLOOD BY AUTOMATED COUNT 1.0 0.1 - 2.0 10/10 Specimen Type: BLOOD No comment entered. Ordering Provider: SHAWN RINCON Report Released Date/Time: Sep 29, 2023 08:21 AM Reporting Lab: [facility] [place] [facility] [address] [facility] [address] Performing Lab: [facility] [place] [facility] [address] [facility] [address] [facility] [place] CBC AND DIFF (AUTO) NEUTROPHIL S [#/VOLUME] IN BLOOD BY AUTOMATED COUNT 2.97 10*3/uL 2.20 - 7.60 10/10 Specimen Type: BLOOD No comment entered. Ordering Provider: SHAWN RINCON Report Released Date/Time: Sep 29, 2023 08:21 AM Reporting Lab: [facility] [place] [facility] [address] [facility] [address] Performing Lab: [facility] [place] [facility] [address] [facility] [address] [facility] [place] CBC AND DIFF (AUTO) LYMPHOCYTE S [#/VOLUME] IN BLOOD BY AUTOMATED COUNT 2.13 10*3/uL 1.00 - 3.20 10/10 Specimen Type: BLOOD No comment entered. Ordering Provider: SHAWN RINCON Report Released Date/Time: Sep 29, 2023 08:21 AM Reporting Lab: [facility] [place] [facility] [address] [facility] [address] Performing Lab: [facility] [place] [facility] [address] [facility] [address] [facility] [place] CBC AND DIFF (AUTO) EOSINOPHIL S [#/VOLUME] IN BLOOD BY AUTOMATED COUNT 0.17 10*3/uL 0.03 - 0.44 10/10 Specimen Type: BLOOD No comment entered. Ordering Provider: SHAWN RINCON Report Released Date/Time: Sep 29, 2023 08:21 AM Reporting Lab: [facility] [place] [facility] [address] [facility] [address] Performing Lab: [facility] [place] [facility] [address] [facility] [address] [facility] [place] CBC AND DIFF (AUTO) BASOPHILS [#/VOLUME] IN BLOOD BY AUTOMATED COUNT 0.06 10*3/uL 0.01 - 0.13 10/10 Specimen Type: BLOOD No comment entered. Ordering Provider: SHAWN RINCON Report Released Date/Time: Sep 29, 2023 08:21 AM Reporting Lab: [facility] [place] [facility] [address] [facility] [address] Performing Lab: [facility] [place] [facility] [address] [facility] [address] [facility] [place] [facility] CBC AND DIFF (AUTO) IMMATURE GRANULOCYT ES/100 LEUKOCYTES IN BLOOD BY AUTOMATED COUNT 0.2 0.0 - 0.7 10/10 Specimen Type: BLOOD No comment entered. Ordering Provider: SHAWN RINCON Report Released Date/Time: Sep 29, 2023 08:21 AM Reporting Lab: [facility] [place] [facility] [address] [facility] [address] Performing Lab: [facility] [place] [facility] [address] [facility] [address] [facility] [place] [facility] CBC AND DIFF (AUTO) IMMATURE GRANULOCYT ES [#/VOLUME] IN BLOOD 0.01 10*3/uL 0.00 - 0.06 10/10 Specimen Type: BLOOD No comment entered. Ordering Provider: SHAWN RINCON Report Released Date/Time: Sep 29, 2023 08:21 AM Reporting Lab: [facility] [place] [facility] [address] [facility] [address] Performing Lab: [facility] [place] [address] [address] [facility] [place] [facility] LIPID PANEL FASTING CHOLESTERO L [MASS/VOLU ME] IN SERUM OR PLASMA 146 mg/dL 10/10 Specimen Type: SERUM No comment entered. Ordering Provider: SHAWN RINCON Report Released Date/Time: Sep 29, 2023 08:21 AM Reporting Lab: [facility] [place] [facility] [address] [facility] [address] Performing Lab: [facility] [place] [facility] [address] [place] [address] [facility] [place] [facility] LIPID PANEL FASTING TRIGLYCERI DE [MASS/VOLU ME] IN SERUM OR PLASMA 142 mg/dL 0 - 150 10/10 Specimen Type: SERUM No comment entered. Ordering Provider: SHAWN RINCON Report Released Date/Time: Sep 29, 2023 08:21 AM Reporting Lab: [facility] [place] [address] [address] Performing Lab: [facility] [place] [facility] [address] [facility] [address] [facility] LIPID PANEL FASTING CHOLESTERO L IN LDL [MASS/VOLU ME] IN SERUM OR PLASMA BY CALCULATIO N 80 mg/dL 0 - 129 10/10 Specimen Type: SERUM No comment entered. Ordering Provider: SHAWN RINCON Report Released Date/Time: Sep 29, 2023 08:21 AM Reporting Lab: [facility] [place] [facility] [address] [facility] [address] Performing Lab: [facility] [place] [facility] [address] [facility] [address] [facility] [facility] LIPID PANEL FASTING CHOLESTERO L.TOTAL/CH OLESTEROL IN HDL [MASS RATIO] IN SERUM OR PLASMA 3.8 10/10 Specimen Type: SERUM No comment entered. Ordering Provider: SHAWN RINCON Report Released Date/Time: Sep 29, 2023 08:21 AM Reporting Lab: [facility] [place] [facility] [address] [facility] [address] Performing Lab: [facility] [place] [facility] [address] [facility] [address] [facility] [facility] LIPID PANEL FASTING CHOLESTERO L IN HDL [MASS/VOLU ME] IN SERUM OR PLASMA 38 mg/dL 40 - 60 10/10 L Specimen Type: SERUM No comment entered. Ordering Provider: SHAWN IRNCON Report Released Date/Time: Sep 29, 2023 08:21 AM Reporting Lab: [facility] [place] [facility] [address] [facility] [address] Performing Lab: [facility] [place] [facility] [address] [facility] [address] [facility] [place] [facility] BASIC METABOLI C PANEL (fasting ) UREA NITROGEN [MASS/VOLU ME] IN SERUM OR PLASMA 14 mg/dL 7 - 25 10/10 Specimen Type: SERUM No comment entered. Ordering Provider: SHAWN RINCON Report Released Date/Time: Sep 29, 2023 08:21 AM Reporting Lab: [facility] [place] [facility] [address] [facility] [address] Performing Lab: [facility] [place] [facility] [address] [facility] [address] [facility] [place] [facility] BASIC METABOLI C PANEL (fasting ) GLUCOSE [MASS/VOLU ME] IN SERUM OR PLASMA 99 mg/dL 65 - 100 10/10 Specimen Type: SERUM No comment entered. Ordering Provider: SHAWN RINCON Report Released Date/Time: Sep 29, 2023 08:21 AM Reporting Lab: [facility] [place] [facility] [address] [facility] [address] Performing Lab: [facility] [place] [facility] [address] [facility] [address] [facility] [place] [facility] BASIC METABOLI C PANEL (fasting ) SODIUM [MOLES/VOL UME] IN SERUM OR PLASMA 142 mmol/L 135 - 145 10/10 Specimen Type: SERUM No comment entered. Ordering Provider: SHAWN RINCON Report Released Date/Time: Sep 29, 2023 08:21 AM Reporting Lab: [facility] [place] [facility] [address] [facility] [address] Performing Lab: [facility] [place] [facility] [address] [facility] [address] [facility] [place] [facility] BASIC METABOLI C PANEL (fasting ) POTASSIUM [MOLES/VOL UME] IN SERUM OR PLASMA 4.3 mmol/L 3.5 - 5.0 10/10 Specimen Type: SERUM No comment entered. Ordering Provider: SHAWN RINCON Report Released Date/Time: Sep 29, 2023 08:21 AM Reporting Lab: [facility] [place] [facility] [address] [facility] [address] Performing Lab: [facility] [place] [facility] [address] [facility] [address] [facility] [place] [facility] BASIC METABOLI C PANEL (fasting ) CHLORIDE [MOLES/VOL UME] IN SERUM OR PLASMA 106 mmol/L 100 - 110 10/10 Specimen Type: SERUM No comment entered. Ordering Provider: SHAWN RINCON Report Released Date/Time: Sep 29, 2023 08:21 AM Reporting Lab: [facility] [address] [facility] [address] Performing Lab: [facility] [address] [facility]N [facility] BASIC METABOLI C PANEL (fasting ) CARBON DIOXIDE, TOTAL [MOLES/VOL UME] IN SERUM OR PLASMA 28 meq/L 20 - 30 10/10 Specimen Type: SERUM No comment entered. Ordering Provider: SHAWN RINCON Report Released Date/Time: Sep 29, 2023 08:21 AM Reporting Lab: [facility]ITAL[facility]ERYN [address] [address] Performing Lab: [facility] TRN [facility] [address] [facility] BASIC METABOLI C PANEL (fasting ) CREATININE [MASS/VOLU ME] IN SERUM OR PLASMA 1.35 mg/dL 0.50 - 1.40 10/10 Specimen Type: SERUM No comment entered. Ordering Provider: SHAWN RINCON Report Released Date/Time: Sep 29, 2023 08:21 AM Reporting Lab: [facility] [address] Performing Lab: [facility] [address] [facility]ITALRNOL[facility] MONTGOMERYN [facility] BASIC METABOLI C PANEL (fasting ) GLOMERULAR FILTRATION RATE/1.73 SQ M.PREDICTE D [VOLUME RATE/AREA] IN SERUM, PLASMA OR BLOOD BY CREATININE -BASED FORMULA (CKD-EPI 2020) 70 mL/min 60 10/10 Specimen Type: SERUM No comment entered. Ordering Provider: SHAWN RINCON Report Released Date/Time: Sep 29, 2023 08:21 AM Reporting Lab: [facility] [place] [facility] [address] [facility] [address] Performing Lab: [facility] [place] [facility] [address] [facility] [address] [facility] [place] [facility] LIVER FUNCTION PROTEIN [MASS/VOLU ME] IN SERUM OR PLASMA 6.7 g/dL 6.0 - 8.3 10/10 Specimen Type: SERUM No comment entered. Ordering Provider: SHAWN RINCON Report Released Date/Time: Sep 29, 2023 08:21 AM Reporting Lab: [facility] [place] [facility] [address] [facility] [address] Performing Lab: [facility] [place] [facility] [address] [facility] [address] [facility] [place] [facility] LIVER FUNCTION ALBUMIN [MASS/VOLU ME] IN SERUM OR PLASMA 4.0 g/dL 3.5 - 5.0 10/10 Specimen Type: SERUM No comment entered. Ordering Provider: SHAWN RINCON Report Released Date/Time: Sep 29, 2023 08:21 AM Reporting Lab: [facility] [place] [facility] [address] [facility] [address] Performing Lab: [facility] [place] [facility] [address] [facility] [address] [facility] [place] [place] [facility] LIVER FUNCTION ALKALINE PHOSPHATAS E [ENZYMATIC ACTIVITY/V OLUME] IN SERUM OR PLASMA 51 U/L 40 - 150 10/10 Specimen Type: SERUM No comment entered. Ordering Provider: SHAWN RINCON Report Released Date/Time: Sep 29, 2023 08:21 AM Reporting Lab: [facility] [place] [facility] [address] [facility] [address] Performing Lab: [facility] [place] [facility] [address] [facility] [address] [facility] [place] [facility] LIVER FUNCTION ASPARTATE AMINOTRANS FERASE [ENZYMATIC ACTIVITY/V OLUME] IN SERUM OR PLASMA 18 U/L 5 - 34 10/10 Specimen Type: SERUM No comment entered. Ordering Provider: SHAWN RINCON Report Released Date/Time: Sep 29, 2023 08:21 AM Reporting Lab: [facility] [place] [facility] [address] [facility] [address] Performing Lab: [facility] [place] [address] [address] [facility] [facility] LIVER FUNCTION ALANINE AMINOTRANS FERASE [ENZYMATIC ACTIVITY/V OLUME] IN SERUM OR PLASMA 31 U/L 10/10 Specimen Type: SERUM No comment entered. Ordering Provider: SHAWN RINCONLETTY Report Released Date/Time: Sep 29, 2023 08:21 AM Reporting Lab: [facility] [place] [address] [address] Performing Lab: [facility] [place] [address] [address] [facility] TRN [facility] LIVER FUNCTION BILIRUBIN. TOTAL [MASS/VOLU ME] IN SERUM OR PLASMA 0.5 mg/dL 0.2 - 1.2 10/10 Specimen Type: SERUM No comment entered. Ordering Provider: SHAWN RINCON Report Released Date/Time: Sep 29, 2023 08:21 AM Reporting Lab: [facility] [place] [address] [address] Performing Lab: [facility] [place] [address] [address] [facility]RL TRN [facility] LYME DISEASE DNA RT PCR, BLOOD BORRELIA [...] t in patients with Borreliosis . The Code of [employer], Article 1 of Chapter 5 of Title 32.1, section 32.1-137.06 , requires that the following language must be included on every Lyme disease test report issued by a [place] laboratory: Patients undergoing a Lyme disease test [...] For additional information , please refer to https://[employer]/faq/f aq224 (This link is being provided for information al/ educational purposes only.) This test was developed and its analytical performance characteris tics have been determined by [employer] [place], [place]. It has not been cleared or approved by the U.S. Food and Drug Administrat ion. This assay has been validated pursuant to the CLIA regulations and is used for clinical purposes. Test Performed by [facility], [place] [facility], [address] [place] [address] Jann Medel M.D., Ph.D., Director of Laboratorie s , CLIA [id number] TEST PERFORMED AT: , Ordering Provider: SHAWN RINCON Report Released Date/Time: Jan 13, 2023 04:26 PM Reporting Lab: [facility] [address] [facility] [address] Performing Lab: [facility] [address] [address] [facility] LYME SEROLOGY PANEL BORRELIA BURGDORFER I AB [PRESENCE] IN SERUM Negative 01/15 Specimen Type: SERUM Comment: The LYME SEROLOGY PANEL was performed using the FDA-approve d Dallni JALEEL Borrelia burdorferi modified two-tier test system. [...] of the panel were validated at the [facility]. Results are considered [...] local health departments , if applicable. The [place] State Form URL is: http://www. [place].gov/dph/ keon/dph/inf ectious_dis eases/pdf_f orms_/pd23_ form.pdf Ordering Provider: SHAWN RINCON Report Released Date/Time: Jan 13, 2023 04:25 PM Reporting Lab: [facility] [address] [facility] [address] Performing Lab: [facility] [address] [facility] [address] [facility] LYME SEROLOGY PANEL BORRELIA BURGDORFER I [...] of the panel were validated at the [facility]. Results are [...] Jan 13, 2023 04:25 PM Reporting Lab: [facility] [place] [facility] [address] [facility] [address] Performing Lab: [facility] [place] [facility] [address] [facility] [address] [facility] [place] [facility] [facility] Vital Signs Combined list of inpatient and outpatient Vital Signs from Department of Defense and Veterans Affairs, ranging from 12 months to all on record, depending upon the facility. Vital Sign Value Date Comments Source SYSTOLIC BLOOD PRESSURE 127 10/06/19 25 13:56:56 [facility] [place] [facility] DIASTOLIC BLOOD PRESSURE 84 025 13:56:56 [facility] [place] [facility] PULSE OXIMETRY 97 10/06/2024 13:56:56 [facility] [place] [facility] WEIGHT 234 10/06/2024 13:56:56 [facility] [place] [facility] BMI 33 kg/m2 10/06/2024 13:56:56 [facility] [place] [facility] PAIN 6 10/06/2024 13:56:56 [facility] [id number] 10/03 [facility] [place] [facility] OFFICE O/P EST MOD 30 MIN [id number] Diagnos is: ICD-10- CM J45.998 Other asthma MARYJANE RINCON MMED JAWED 10/15 [facility] En[facility] [id number] 10/31 [facility] [place] En[facility] [id number] 11/03 [facility] [place] En[facility] [id number] 11/03 [facility] En[facility] [id number] 11/06 [facility] [id number] Diagnos is: ICD-10- CM M25.552 Pain in left hip MARYJANE RINCON MMED JAWED 11/07 [facility] En[facility] [id number] 11/11 [facility] En[facility] [id number] 11/26 [facility] En[facility] [id number] 12/16 [facility] En[facility] [id number] Beata FAUST 12/16 [facility] OFF[facility] O/P EST MOD 30 MIN [id number] Diagnos is: ICD-10- CM M25.552 Pain in left hip FURCOLO,TI NA 01/14 [facility] Out[facility] Encounter [id number] 03/02 [facility] OFFICE O/P EST MOD 30 MIN [id number] Diagnos is: ICD-10- CM F17.200 Nicotin e depende nce, unspeci fied, uncompl icated FURCOLO,TI NA 03/22 [facility] QNHP OL DIG ASSMT&MGMT 5-10 [id number] Diagnos is: ICD-10- CM J45.998 Other asthma Leandro DAO ESSICA 03/24 [facility] [place] QNHP OL DIG ASSMT&MGMT 5-10 [id number] Diagnos is: ICD-10- CM Z51.81 Encount er for therape utic drug level monitor DAVINA Donovan 03/29 [place] [facility] Outpatient Encounter [id number] 1.06/08 [facility] OFF/OP EST MAY X REQ PHY/QHP [id number] Diagnos is: ICD-10- CM 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 Holly Huang 06/08 [facility] INTRM OPH EXAM EST PATIENT [id number] Diagnos is: ICD-10- CM 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, bilater al MICHAEL WILSONE 06/08 [facility] Outpatient Encounter [id number] 09/07 [facility] OFFICE O/P EST HI 40 MIN [id number] Diagnos is: ICD-10- CM F17.200 Nicotin e depende nce, unspeci fied, uncompl icated FURCOLO,TI NA 10/06 [facility] [facility] Outpatient Encounter [id number] 10/06 [facility] [place] PH1 ASSMT&MGMT NQHP 11-20 [id number] Diagnos is: ICD-10- CM F41.9 Anxiety disorde r, unspeci fied VANNA CHANCE RTNEY R 10/06 [facility] [place] [facility] [place] [facility] PSYTX W PT 45 MINUTES [id number] Diagnos is: ICD-10- CM F43.9 Reactio n to severe stress, unspeci fied VANNA CHANCE RTNEY R 10/21 [facility] [place] [facility] [place] [facility] Outpatient Encounter [id number] 11/09 [facility] [place] [facility] [place] [facility] TELEHEALTH FACILITY FEE [id number] Diagnos is: ICD-10- CM G47.30 Sleep apnea, unspeci fied NIDHI,FREDE JUAN ALBERTO 11/29 [facility] [place] [facility] ([id number]) EDU&TRN PT SELF-MGMT NQHP 1 [id number] Diagnos is: ICD-10- CM G47.30 Sleep apnea, unspeci fied NIDHI,FREDE JUAN ALBERTO 11/29 [facility] (631GE) [facility] [place] [facility] Outpatient Encounter [id number] 12/07 [facility] [place] [facility] [place] [facility] NQHP OL DIG ASSMT&MGMT 5-10 [id number] Diagnos is: ICD-10- CM J45.998 Other asthma SOVEROW,CH RISTY A 12/07 [facility] [place] [facility] [place] [facility] PSYTX W PT 30 MINUTES [id number] Diagnos is: ICD-10- CM F43.9 Reactio n to severe stress, unspeci fied VANNA CHANCE RTNEY R 12/14 [facility] [place] [facility] [place] [facility] PSYTX W PT 45 MINUTES [id number] Diagnos is: ICD-10- CM F43.9 Reactio n to severe stress, unspeci fied VANNA CHANCE RTJASWANT R 12/28 [facility] [place] SLEEP STUDY UNATT&RESP EFFT [id number] Diagnos is: ICD-10- CM G47.30 Sleep apnea, unspeci fied CURIOSO-UY ,ADDIS 12/28 [facility] [place] [facility] PSYTX W PT 30 MINUTES [id number] Diagnos is: ICD-10- CM F43.12 Post-tr aumatic stress disorde r, chronic VANNA CHANCE RTNEY R 01/04 [facility] [place] [facility] Social History Combined list of available smoking, tobacco, and other social history from Department of Defense and Veterans Affairs facilities. Social History Type Response Date Comment Source Tobacco smoking status [facility] VA-TOBACCO USE FORMER OTHER TYPE 10/06/2024 chewing tobacco [facility] [facility] History of tobacco use VA-TOBACCO NEVER USED CIGARETTES 10/06/2024 [facility] [facility] History of tobacco use VA-TOBACCO NEVER USED 10/15/2023 [facility] [place] [facility] History of tobacco use VA-TOBACCO USER EVERY DAY 08/01/2021 [facility] [place] [facility] History of tobacco use [facility]-TO[facility]ACCO [facility] 07/24[facility] [place] [facility] History of tobacco use CO-TOBACCO USE MED NO 07/19/2019 [facility] [place] [facility] History of tobacco use CURRENT SMOKELESS TOBACCO USER 04/21/2018 [facility] [place] [facility] History of tobacco use CURRENT SMOKELESS TOBACCO USER 09/16/2017 [facility] [place] [facility] History of tobacco use CURRENT SMOKER 10/01/2016 [facility] [place] [facility] History of tobacco use LIFETIME NON-TOBACCO USER 07/07/2013 non-tobacco user [facility] [place] [facility]
--- OUTSIDE RECORDS SUMMARY | 2025-01-05 09:47 | XMS_ITS ---
Author Name [facility] [place] Address [address] [place] [address] Care Team Providers Care Flower Stripper Name Role Phone CARSON IKM Primary Care Provider Unavailabl e Insurance Providers: [...] E FAMIL Y Mar 22, 2023 [id number] [phone] KAETLYNN BLACK PATIENT EXPRESS SCRIPTS ([id number]) PRESCRIPT ION GIC Aug 26, 2020 [id number] KATELYNN BLACK PHEN PATIENT [facility] CE ORGANIZAT ION HEALT H [facility] Sep 22, 2023 [id number] KATELYNN BLACK PHEN PATIENT OPTUM RX PRESCRIPT ION HNE HMO Sep 22, 2024 HNE [id number] [phone] KATELYNN BLACK PHEN PATIENT OPTUM RX PRESCRIPT ION [address] RD PILGR IM January 20, 2023 NONE [id number] HANKS,KATELYNN PHEN PATIENT UMR PREFERRED PROVIDER ORGANIZAT ION (PPO) BRYCE MASON ND January 20, 2023 [id number] [phone] KATELYNN BLACK PATIENT Selected Encounter This section includes the information on record at [place] for the Encounter. Date/Time Encounter Type Encounter Description Reason Provider Source Dec 28, 2024 10:00 AM PSYTX W PT 45 MINUTES PCMHI INDIV ICD-10-CM F43.9 Reaction to severe stress, unspecified MARY CHANCE R IHE Encounter Template Text not used by [place] Assessments - Encounter Diagnoses This section includes the primary and secondary diagnoses documented for the Encounter. Date/Time Primary/Secondary Diagnosis Diagnosis Name Provider Source Dec 28, 2024 04:51 PM PRIMARY Reaction to severe stress, unspecified DORITA CHANCE [facility] [place] [facility] Dec 28, 2024 04:51 PM SECONDARY Depression, unspecified DORITA CHANCE [place] [facility] [place] [facility] Dec 28, 2024 04:51 PM SECONDARY Low back pain, unspecified DORITA CHANCE [place] [facility] [facility] Dec 28, 2024 04:51 PM SECONDARY Nicotine dependence, unspecified, uncomplicated DORITA CHANCE [facility] [place] [facility] Dec 28, 2024 04:51 PM SECONDARY Other asthma DORITA CHANCE [place] [facility] [facility] Dec 28, 2024 04:51 PM SECONDARY Pain in left hip DORITA CHANCE [facility] [place] [facility] Dec 28, 2024 04:51 PM SECONDARY Pain in unspecified knee DORITA CHANCE [place] [facility] [facility] Dec 28, 2024 04:51 PM SECONDARY Pain in unspecified shoulder DORITA CHANCE [place] [facility] [facility] Dec 28, 2024 04:51 PM SECONDARY Psych & behavrl factors assoc w disord or dis classd elswhr DORITA CHANCE [facility] [place] [facility] Plan of Treatment: Future Appointments (+ 6 months) and Future Tests (+/- 45 days) The Plan of Treatment section includes future care activities for the patient from all [place] treatmentfacilities. This section includes future appointments and future orders which are active, pending or scheduled. Future Appointments This section includes appointments that were scheduled to occur 6 months from the date of the Encounter, up to a maximum of 20 appointments. The data comes from all [place] treatment facilities. Appointment Date/Time Appointment Type Appointme nt Facility Name Jan 04, 2025 09:30 AM AMBULATORY - PSYCHIATRY [place] [facility] [place] [facility] Social History: Smoking Status (Most current) and Tobacco Use (All prior to encounter date) This section includes the most current, and the historical, smoking and tobacco- related health factors from the [place] facility where the Encounter took place. Current Smoking Status This section includes the most current smoking, or tobacco-related health factor, from the [place] facility where the Encounter took place. Date/Time Current Smoking Status Comment [facility] Oct 06, 2024 02:00 PM VA-TOBACCO NEVER U SED CIGARETTES [place] [facility] Tobacco Use History This section includes a history of the smoking, or tobacco-related health factors, that were collected on or before the date of the Encounter. The data comes from the [place] facility where the Encounter took place. Date/Time Smoking Status/Tobac co Use Comment Facility Oct 06, 2024 02:00 PM VA-TOBACCO NEVER USED OTHER TYPE [facility] [place] [facility] Oct 06, 2024 02:00 PM VA-TOBACCO USE FORMER OTHER TYPE chewing tobacco [place] [facility] [facility] Oct 15, 2023 10:00 AM VA-TOBACCO NEVER USED [facility] [place] [facility] Aug 01, 2021 03:30 PM VA-TOBACCO DOESNT USE WI 30 MIN WAKEUP [place] [facility] [facility] Aug 01, 2021 03:30 PM VA-TOBACCO USE 5 TO 15 YEARS [facility] [place] [facility] Aug 01, 2021 03:30 PM VA-TOBACCO USE ADVICE [place] [facility] [facility] Aug 01, 2021 03:30 PM 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 [facility] [place] [facility] Aug 01, 2021 03:30 PM VA-TOBACCO USE MED NO [facility] [place] [facility] Aug 01, 2021 03:30 PM VA-TOBACCO USER EVERY DAY [facility] [place] [facility] Jul 24, 2020 08:30 AM VA-TOBACCO NEVER USED [facility] [place] [facility] Jul 19, 2019 03:43 PM VA-TOBACCO DOESNT USE WI 30 MIN WAKEUP [facility] [place] [facility] Jul 19, 2019 03:43 PM VA-TOBACCO USE 5 TO 15 YEARS [facility] Jul 19, 2019 03:43 PM VA-TOBACCO USE ADVICE [facility] Jul 19, 2019 03:43 PM 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 [facility] Jul 19, 2019 03:43 PM VA-TOBACCO USE MED NO [facility] Jul 19, 2019 03:43 PM VA-TOBACCO USER SOME DAYS [facility] Apr 21, 2018 11:30 AM CURRENT SMOKELESS [facility]ACCO [facility] Apr 21, 2018 11:30 AM V1-PT DECLINES REF TO TOBACCO CESS PRGM [facility] Apr 21, 2018 11:30 AM V1-PT THINKING ABOUT QUIT TOBACCO USE [facility] [place] [place] [facility] Sep 16, 2017 01:25 PM CURRENT SMOKELESS TOBACCO USER [facility] [place] [facility] Oct 01, 2016 01:03 PM CURRENT SMOKER [facility] Oct 01, 2016 01:03 PM QUIT TOBACCO USE > 7 YEARS AGO [facility] [place] [facility] Jul 07, 2013 11:12 AM LIFETIME NON-TOBACCO USER non-tobacco user [facility] Encounter Notes: All associated encounter notes This section contains the clinical notes associated to the Encounter. Date/Time Encounter Note(s) Provider Source Dec 28, 2024 05:02 AM TELEHEALTH NOTE: LOCAL TITLE: [facility] NOTE STANDARD TITLE: TELEHEALTH NOTE DATE OF NOTE: DEC 28, 2024@05:02 ENTRY DATE: DEC 28, 2024@05:02:45 AUTHOR: LYUDMILA CHANCE EXP COSIGNER: URGENCY: STATUS: COMPLETED [facility] ([facility]VC) Standard Documentation VVC Clinician Resources Only: E911 (Emergency Call Relay Center): [phone] National Veterans Crisis Line - 988 then press #1. LUCIO Suicide Coordinator [phone], Ext. [phone]; Back-up Ext. [phone] [place] Police, Jolanta VALDES [phone] Introduction: Visit is being conducted by [place] [facility]. [place] identified with 2 identifiers: [X] Full Name [X] Date of [ ] VA ID Card Emergency Plan: confirmed and/or provided the following information in case of emergency or technology failure. PATIENT PHONE - [phone] PHONE NUMBER [CELLULAR] - Is patient phone number correct, if not, enter below: [place]'s phone number: RICHARD BLACK [address], [place], [address] [place]'s present location and address for appointment: home location listed above [place]'s emergency contact name and phone number: [phone]- Katharina (father) [place] reported that location is private and safe: Yes Informed Consent: informed of the risks and benefits of Telehealth video care. has the right to refuse video services. If refuses video visit, a lfrs-wf-xsss visit will be scheduled. verbalized consent for this video visit: Yes [place] provided consent for any other persons present for visit: No If yes, who and relationship to patient: Secure visit: Visit was locked for security and privacy:Yes Does this visit involve laterality/specific side of body? N/A PC-MHI OUTPATIENT F/U NOTE DURATION: 40 mins Saloni Black is a 34 year-old, partnered, white, male with a PMH of bronchial asthma, chronic pain in hip/knee/shoulders/back, nicotine dependence, depression and anxiety. 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 reported that symptoms remain in the same range. [place] explored feeling exhausted by stress and managing hip pain, and the impact of pain on functioning and sleep. He said that he practiced deep breathing but it was not as impactful when heightened with stress after work. Benefits of daily practice were reviewed. He hopes to meet with specialist again for hip pain, as prior treatment was effective for a short period of time, and thus he is hopeful specialist may be able to assist with shrinking of the cyst again, and/or provide pain relief or another injection, etc. He reviewed how hip pain has been present since 2008 but has impacted functioning more and become more painful as time goes on. He experiences 9/10 pain at times. He also experiences shoulder pain and knee pain. He has participated in PT and uses stretches to help, but also has pulled away from running and exercise lately due to pain. Chronic pain cycle, and factors that increase or decrease pain were reviewed. Options of topics to explore were reviewed and he chose to expand upon relaxation training as well automatic negative thoughts, next session. He identified self-defeating thoughts and overthinking that can impact mood. CBT-CP handouts briefly reviewed and benefits of CBT-CP treatment reviewed. He denied SI/H. SCREENERS: PHQ-9: 13, moderate depression, somewhat difficult (10/21/24) BRANDEE-7: 14, moderate anxiety, somewhat difficult (10/21/24) DIAGNOSES: Trauma and Stressor Related Disorder, Unspecified; Depressive Disorder, Unspecified; Psychological Factors Affecting a General Medical Condition (Chronic Pain in hips, shoulders, back, knee); Bronchial Asthma; Nicotine Dependence, Moderate; R/O PTSD IMPRESSIONS/PLAN: Mr. 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 He denied SI/HI and crisis concerns and was reminded of [facility] and VCL services. In collaboration with considering evidence-based treatment, clinical judgment and patient preference, options of treatment were offered. [place] [facility] including relaxation training and cognitive restructuring as well as PCL-5 PTSD assessment, and learning of other MH treatment options. He will return to [facility] for roughly 3-4, individual sessions. He will return to [facility], 01/04 at 930am, [facility]. /caryn/ LYUDMILA CHANCE, PhD STAFF PSYCHOLOGIST Signed: 12/28/2024 16:58 LYUDMILA CHANCE [facility]
--- OUTSIDE RECORDS SUMMARY | 2025-01-05 09:47 | XMS_ITS | Encounter Summary ---
Author Name [facility] [place] Address [address] [place] [address] Care Team Providers Care Sock Knitter Name Role Phone CARSON KIM Primary Care [...] E FAMIL Y Mar 22, 2023 [id number] [id number] KATELYNN BLACK PATIENT EXPRESS SCRIPTS ([id number]) PRESCRIPT ION GIC Aug 26, 2020 [id number] [phone] KATELYNN BLACK PHEN PATIENT [facility] CE ORGANIZAT ION [facility] H [facility] Sep 22, 2023 [id number] [phone] KATELYNN BLACK PHEN PATIENT OPTUM RX PRESCRIPT ION HNE HMO Sep 22, 2024 HNE [id number] [phone] KATELYNN BLACK PHEN PATIENT OPTUM RX PRESCRIPT ION [address] PILGR IM January 20, 2023 NONE [id number] HANKS,KATELYNN PHEN PATIENT UMR PREFERRED PROVIDER ORGANIZAT ION (PPO) BRYCE MASON ND January 20, 2023 [id number] [phone] KATELYNN BLACK PATIENT Selected Encounter This section includes the information on record at [place] for the Encounter. Date/Time Encounter Type Encounter Description Reason Provider Source Jan 04, 2025 09:30 AM PSYTX W PT 30 MINUTES PCMHI INDIV ICD-10-CM F43.12 Post-traumatic stress disorder, chronic MARY CHANCE Y R IHE Encounter Template Text not used by [place] Assessments - Encounter Diagnoses This section includes the primary and secondary diagnoses documented for the Encounter. Date/Time Primary/Secondary Diagnosis Diagnosis Name Provider Source Jan 05, 2025 09:39 AM PRIMARY Post-traumatic stress disorder, chronic DORITA CHANCE [place] [facility] [facility] Jan 05, 2025 09:39 AM SECONDARY Depression, unspecified DORITA CHANCE [place] [facility] [facility] Jan 05, 2025 09:39 AM SECONDARY Low back pain, unspecified DORITA CHANCE [place] [facility] [facility] Jan 05, 2025 09:39 AM SECONDARY Nicotine dependence, unspecified, uncomplicated DORITA CHANCE [place] [facility] [facility] Jan 05, 2025 09:39 AM SECONDARY Other asthma DORITA CHANCE [place] [facility] [facility] Jan 05, 2025 09:39 AM SECONDARY Pain in left hip DORITA CHANCE [place] [facility] [facility] Jan 05, 2025 09:39 AM SECONDARY Psych & behavrl factors assoc w disord or dis classd elswhr DORITA CHANCE [place] [facility] [facility] Social History: Smoking Status (Most current) and Tobacco Use (All prior to encounter date) This section includes the most current, and the historical, smoking and tobacco- related health factors from the [place] facility where the Encounter took place. Current Smoking Status This section includes the most current smoking, or tobacco-related health factor, from the [place] facility where the Encounter took place. Date/Time Current Smoking Status Comment [facility] Oct 06, 2024 02:00 PM VA-TOBACCO NEVER U SED CIGARETTES [place] [facility] [facility] Tobacco Use History This section includes a history of the smoking, or tobacco-related health factors, that were collected on or before the date of the Encounter. The data comes from the [place] facility where the Encounter took place. Date/Time Smoking Status/Tobac co Use Comment Facility Oct 06, 2024 02:00 PM VA-TOBACCO NEVER USED OTHER TYPE [facility] [place] [facility] Oct 06, 2024 02:00 PM VA-TOBACCO USE FORMER OTHER TYPE chewing tobacco [facility] [place] [facility] Oct 15, 2023 10:00 AM VA-TOBACCO NEVER USED [facility] [place] [facility] Aug 01, 2021 03:30 PM VA-TOBACCO DOESNT USE WI 30 MIN WAKEUP [facility] [place] [facility] Aug 01, 2021 03:30 PM VA-TOBACCO USE 5 TO 15 YEARS [facility] [place] [facility] Aug 01, 2021 03:30 PM VA-TOBACCO USE ADVICE [facility] [place] [facility] Aug 01, 2021 03:30 PM VA-TOBACCO USE CORPORATE STRATEGY INTERN NO [facility] [place] [facility] Aug 01, 2021 03:30 PM VA-TOBACCO USE MED NO [facility] [facility] Aug 01, 2021 03:30 PM VA-TOBACCO USER EVERY DAY [place] [facility] [facility] Jul 24, 2020 08:30 AM VA-TOBACCO NEVER USED [facility] [place] [facility] Jul 19, 2019 03:43 PM VA-TOBACCO DOESNT USE WI 30 MIN WAKEUP [facility] [place] [facility] Jul 19, 2019 03:43 PM VA-TOBACCO USE 5 TO 15 YEARS [facility] [place] [facility] Jul 19, 2019 03:43 PM VA-TOBACCO USE ADVICE [facility] [place] [facility] Jul 19, 2019 03:43 PM VA-TOBACCO USE CORPORATE STRATEGY INTERN NO [facility] [place] [facility] Jul 19, 2019 03:43 PM VA-TOBACCO USE MED NO [facility] [place] [facility] Jul 19, 2019 03:43 PM VA-TOBACCO USER SOME DAYS [facility] [place] [facility] Apr 21, 2018 11:30 AM CURRENT SMOKELESS TOBACCO USER [facility] Apr 21, 2018 11:30 AM V1-PT DECLINES REF TO TOBACCO CESS PRGM [facility] Apr 21, 2018 11:30 AM V1-PT THINKING ABOUT QUIT TOBACCO USE [facility] CHAR[facility]EVenessa [facility] Sep 16, 2017 01:25 PM CURRENT SMOKELESS TOBACCO USER [facility] HAILEY ARMSTRONG [facility] Oct 01, 2016 01:03 PM CURRENT SMOKER [facility] CHARLIEVenessa ARM[facility]ONG [facility] Oct 01, 2016 01:03 PM QUIT TOBACCO USE > 7 YEARS AGO [facility] PATTI [facility] Jul 07, 2013 11:12 AM LIFETIME NON-TOBACCO USER non-tobacco user [facility]
--- OUTSIDE RECORDS SUMMARY | 2025-01-05 09:47 | XMS_ITS | Encounter Summary ---
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 Role Phone CARSON [...] E FAMIL Y Mar 22, 2023 [id number] [phone] KATELYNN BLACK PATIENT [employer] ([id number]) PRESCRIPT ION GIC Aug 26, 2020 [id number] [phone] KATELYNN BLACK PHEN PATIENT [facility] CE ORGANIZAT ION HEALT H [facility] Sep 22, 2023 [id number] [phone] KATELYNN BLACK PHEN PATIENT [employer] RX PRESCRIPT ION HNE HMO Sep 22, 2024 HNE [id number] [phone] KATELYNN BLACK PHEN PATIENT [facility] RX PRESCRIPT ION [address] PILGR IM January 20, 2023 NONE [id number] [phone] HANKS,KATELYNN PHEN PATIENT [facility] PREFERRED PROVIDER ORGANIZAT ION (PPO) BRYCE MASON [place] January 20, 2023 [id number] [phone] KATELYNN BLACK PATIENT Selected Encounter This section includes the information on record at [place] for the Encounter. Date/Time Encounter Type Encounter Description Reason Provider Source Dec 14, 2024 10:30 AM PSYTX W PT 30 MINUTES PCMHI INDIV ICD-10-CM F43.9 Reaction to severe stress, unspecified MARY CHANCE R IHE Encounter Template Text not used by [place] Assessments - Encounter Diagnoses This section includes the primary and secondary diagnoses documented for the Encounter. Date/Time Primary/Secondary Diagnosis Diagnosis Name Provider Source Dec 14, 2024 01:17 PM PRIMARY Reaction to severe stress, unspecified DORITA CHANCE [facility] [place] [facility] Dec 14, 2024 01:17 PM SECONDARY Depression, unspecified DORITA CHANCE [place] [facility] [place] [facility] Dec 14, 2024 01:17 PM SECONDARY Low back pain, unspecified DORITA CHANCE [facility] [place] [facility] Dec 14, 2024 01:17 PM SECONDARY Nicotine dependence, unspecified, uncomplicated DORITA CHANCE [facility] [place] [facility] Dec 14, 2024 01:17 PM SECONDARY Other asthma DORITA CHANCE [place] [facility] [place] [facility] Dec 14, 2024 01:17 PM SECONDARY Pain in left hip DORITA CHANCE [facility] [place] [facility] Dec 14, 2024 01:17 PM SECONDARY Psych & behavrl factors assoc w disord or dis classd elswhr DORITA CHANCE [place] [facility] [place] [facility] Plan of Treatment: Future Appointments (+ 6 months) and Future Tests (+/- 45 days) The Plan of Treatment section includes future care activities for the patient from all [place] treatmentfacilities. This section includes future appointments and future orders which are active, pending or scheduled. Future Appointments This section includes appointments that were scheduled to occur 6 months from the date of the Encounter, up to a maximum of 20 appointments. The data comes from all [place] treatment facilities. Appointment Date/Time Appointment Type Appointme nt Facility Name Dec 28, 2024 10:00 AM AMBULATORY - [place]AT[place] [facility] [place] [facility] Jan 04, 2025 09:30 AM AM[place]ULATORY [place] [facility] [place] [facility] Social History: Smoking Status (Most current) and Tobacco Use (All prior to encounter date) This section includes the most current, and the historical, smoking and tobacco- related health factors from the [place] facility where the Encounter took place. Current Smoking Status This section includes the most current smoking, or tobacco-related health factor, from the [place] facility where the Encounter took place. Date/Time Current Smoking Status Comment Facility Oct 06, 2024 02:00 PM VA-TOBACCO USE FOR HOMERO OTHER TYPE chewing tobacco [facility] Tobacco Use History This section includes a history of the smoking, or tobacco-related health factors, that were collected on or before the date of the Encounter. The data comes from the [place] facility where the Encounter took place. Date/Time Smoking Status/Tobac co Use Comment Facility Oct 06, 2024 02:00 PM VA-TOBACCO NEVER USED OTHER TYPE [facility] [place] [facility] Oct 06, 2024 02:00 PM VA-TOBACCO USE FORMER OTHER TYPE chewing tobacco [place] [facility] [place] [facility] Oct 15, 2023 10:00 AM VA-TOBACCO NEVER USED [facility] [place] [facility] Aug 01, 2021 03:30 PM VA-TOBACCO DOESNT USE WI 30 MIN WAKEUP [place] [facility] [place] [facility] Aug 01, 2021 03:30 PM VA-TOBACCO USE 5 TO 15 YEARS [facility] [place] [facility] Aug 01, 2021 03:30 PM VA-TOBACCO USE ADVICE [facility] [place] [facility] Aug 01, 2021 03:30 PM VA-TOBACCO USE DIRECTOR DIGITAL NO [facility] [place] [facility] Aug 01, 2021 03:30 PM VA-TOBACCO USE MED NO [facility] [place] [facility] Aug 01, 2021 03:30 PM VA-TOBACCO USER EVERY DAY [facility] [place] [facility] Jul 24, 2020 08:30 AM VA-TOBACCO NEVER USED [facility] [place] [facility] Jul 19, 2019 03:43 PM VA-TOBACCO DOESNT USE WI 30 MIN WAKEUP [place] [facility] [place] [facility] Jul 19, 2019 03:43 PM VA-TOBACCO USE 5 TO 15 YEARS [place] [facility] [place] [facility] Jul 19, 2019 03:43 PM [facility] Jul 19, 2019 03:43 PM VA-TOBACCO USE DIRECTOR DIGITAL NO [place] [facility] Jul 19, 2019 03:43 PM VA-TOBACCO USE MED NO [place] [facility] Jul 19, 2019 03:43 PM VA-TOBACCO USER SOME DAYS [place] [facility] Apr 21, 2018 11:30 AM CURRENT SMOKELESS TOBACCO USER [place] [facility] [place] [facility] Apr 21, 2018 11:30 AM V1-PT DECLINES REF TO TOBACCO CESS [facility] Apr 21, 2018 11:30 AM V1-PT THINKING ABOUT QUIT TOBACCO USE [place] [facility] [place] [facility] Sep 16, 2017 01:25 PM CURRENT SMOKELESS [facility]ACCO USER [facility] [place] [facility] Oct 01, 2016 01:03 PM [facility]MOKER [facility] Oct 01, 2016 01:03 PM QUIT TOBACCO USE > 7 YEARS AGO [place] [facility] [place] [facility] Jul 07, 2013 11:12 AM LIFETIME NON-TOBACCO USER non-tobacco user [facility] Encounter Notes: All associated encounter notes This section contains the clinical notes associated to the Encounter. Date/Time Encounter Note(s) Provider Source Dec 14, 2024 05:45 AM TELEHEALTH NOTE: LOCAL TITLE: [facility] VIDEO CONNECT [facility] NOTE STANDARD TITLE: TELEHEALTH NOTE DATE OF NOTE: DEC 14, 2024@05:45 ENTRY DATE: DEC 14, 2024@05:45:26 AUTHOR: LYUDMILA CHANCE EXP COSIGNER: URGENCY: STATUS: COMPLETED [facility] Video Connect (VVC) Standard Documentation VVC Clinician Resources Only: E911 (Emergency Call Relay Center): [phone] National Veterans Crisis Line - 988 then press #1. [facility] Suicide Coordinator [phone], Ext. [phone]; Back-up Ext. [phone] [place] , Jolanta VALDES [phone] Introduction: Visit is being conducted by [place] [facility]. identified with 2 identifiers: [X] Full Name [X] Date of [ ] VA ID Card Emergency Plan: [place] confirmed and/or provided the following information in case of emergency or technology failure. PATIENT PHONE - [phone] PHONE NUMBER [CELLULAR] - Is patient phone number correct, if not, enter below: Glasford's phone number: RICHARD BLACK [address], [place], [address] 's present location and address for appointment: home address listed above 's emergency contact name and phone number: [phone] Chapman (father) Glasford reported that location is private and safe: Yes Informed Consent: informed of the risks and benefits of Telehealth video care. has the right to refuse video services. If refuses video visit, a [id number] visit will be scheduled. verbalized consent for this video visit: Yes Glasford provided consent for any other persons present for visit: No If yes, who and relationship to patient: Secure visit: Visit was locked for security and privacy:Yes Does this visit involve laterality/specific side of body? N/A PC-MHI OUTPATIENT F/U NOTE DURATION: 30 mins Saloni Black is a 34 year-old, partnered, white, male with a PMH of bronchial asthma, chronic pain in hip/knee/shoulders/back, nicotine dependence, depression and anxiety. 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 explored how he has experienced adjustment in medication and underwent a sleep test and hopes to gain more information regarding his sleep health. In addition, he confirmed that he continues to experience challenges with anxiety and depression, and options of topics and interventions that could be explored for today were reviewed and he chose stress reduction/relaxation training. He was oriented to the stress response, as well as benefits of relaxation training and regular practice, and was guided through an abdominal breathing exercise. He explored how he had unrelated thoughts during exercise and challenges with restlessness but will explore self-practice. Handouts to support self-practice were securely messaged. He denied SI/HI. He explored how stressful thoughts come to mind at times. Benefits of engaging in exploration of cognitive restructuring to assist with intrusive thoughts were briefly explored as well. SCREENERS: PHQ-9: 13, moderate depression, somewhat difficult BRANDEE-7: 14, moderate anxiety, somewhat difficult DIAGNOSES: Trauma and Stressor Related Disorder, Unspecified; [...] and crisis concerns and was reminded of [facility] and [facility] services. In collaboration with considering evidence-based treatment, clinical judgment and patient preference, options of treatment were offered. agreed to return to [facility] for brief CBT treatment including relaxation training and cognitive restructuring as well as PCL-5 PTSD assessment, and learning of other MH treatment options. He will return to -[facility] for roughly 3-4, individual sessions. He will return to -[facility], 12/28 at 10am, [facility]. /caryn/ LYUDMILA CHANCE, PhD STAFF PSYCHOLOGIST Signed: 12/15/2024 10:44 [facility]ILA CHANCE [facility]
== END 2025-01-05 09:44 | disposition home or self-care (01) ==
LOC: HO.HPS 09:05
PROVIDERS: PCP Internal Medicine; Visit Provider Internal Medicine
DX: J45.909 Unspecified asthma, uncomplicated (principal)
CPT/HCPCS: 99213

== ENCOUNTER → 2025-01-05 09:04 | Outpatient (BNVA) | payer OTHER, SELFPAY | PROVIDERS: PCP Internal Medicine; Visit Provider Internal Medicine | DX: J45.909 Unspecified asthma, uncomplicated (principal) ==

== ENCOUNTER 2025-04-20 10:52 | Outpatient (AMB) | payer OTHER, SELFPAY ==
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
--- NOTE | 2025-04-20 10:56 | MHC.OFFVIS ---
Vital Signs 04/20/25 10:57 Height 5 ft 11 in Weight 221 lb 9.033 oz BMI 30.9 BP 110/80 Blood Pressure Location Lt brachial Position Sitting Pulse 81 Pulse Source Pulse Oximeter Pulse Oximetry (%) 98 Oxygen Delivery Method Room Air Intake Visit Reasons: Shortness of breath Intake Note: pt is here for follow up states inhaler seems to be helping. 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 HIS BRONCHIAL ASTHMA IS MAINLY EXERCISE INDUCED BUT ALSO HE HAS INTERMITTENT BOUTS OF SHORTNESS OF BREATH WHICH MAY BE DUE TO SOME NONSPECIFIC ENVIRONMENTAL ALLERGIES. HE CONTROLS HIS SYMPTOMS VERY WELL WITH THE USE OF BRONCHODILATOR INHALERS. HE IS USING SPIRIVA RESPIMAT 2 INHALATIONS EVERY MORNING, AND USING SYMBICORT 2 PUFFS TWICE A DAY ONLY NEEDED. ALSO WHEN HE HAS TO DO VIGOROUS EXERCISE SUCH HIKING OR RUNNING, HE USES ALBUTEROL HFA P.R.N.. HE FINDS THIS THE ARRANGEMENT MOST HELPFUL FOR HIM. HE DOES HAVE THE PEAK FLOW BUT HARDLY USES IT. HE IS NONSMOKER, BUT CHEWS TOBACCO ON A DAILY BASIS, ONLY IN SMALL AMOUNTS. 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 Cognitive needs: No Hearing needs: No Vision needs: No Review of Systems Const All systems reviewed & are unremarkable except as noted in HPI and below Eyes Reports no additional complaints ENT Reports nasal congestion (Mild off and on) Card Denies chest pain, Denies syncope, Denies irregular heart rhythm and Denies leg edema Resp Reports as per HPI GI Reports no additional complaints Reports no additional complaints Musc Reports back pain Skin/Breast Reports system reviewed and no additional complaints, except as documented Neuro Reports no additional complaints and Denies syncope Psych Reports no additional complaints Endo Reports no additional complaints Physical Exam Vital Signs: Last Vital Signs Pulse 81 04/20/25 10:57 BP 110/80 04/20/25 10:57 Pulse Ox 98 04/20/25 10:57 Oxygen Delivery Method Room Air 04/20/25 10:57 BMI result Body Mass Index 30.9 Slightly overweight otherwise looks in good general health Const General: healthy appearing, comfortable, no acute distress, alert and awake Orientation/consciousness: patient oriented x3 HEENT Head: Yes normal to inspection General nose exam: No nasal polyps present and No nasal discharge present Face and sinus: Yes sinuses nontender Mouth: oropharynx normal Throat: Yes posterior oropharynx normal Eyes General: appearance normal, both eyes and all related structures Neck Neck: Yes normal visual inspection, Yes no lymphadenopathy, Yes trachea midline and Yes no JVD Thyroid: Thyroid normal Chest Chest palpation & inspection: normal inspection of the chest, normal palpation of entire chest wall and no tenderness Resp Other: Percussion note is resonant, no wheezes or crepitations are heard. Cardio Palpation: normal PMI Rate: regular rate Rhythm: regular rhythm Heart sounds: no gallops and no murmurs Peripheral pulses: Peripheral pulses 2+ throughout GI Palpation (GI): Soft to palpation, nontender, No hepatosplenomegaly present and no masses Auscultation: normal bowel sounds Back/Spine/Pelvis Thoracic/Lumbar Spine: thoracic and lumbar spine normal to inspection and thoraco-lumbar ROM limited Skin General skin exam: no rashes or lesions noted Neuro General: patient oriented x3 and no focal motor deficits Cranial nerves: Yes CN's II-XII intact bilaterally Extrem General: Yes normal to inspection, Yes no clubbing, cyanosis or edema and Yes no calf tenderness Psych Appearance: grossly normal and well kempt Speech and movement: Normal speech and movement present Assessment & Plan Assessment & Plan (1) Asthma: Comment: PULMONARY FUNCTION TEST IN 2022 CONFIRMED THAT HE HAS MILD TO MODERATE OBSTRUCTIVE PATTERN WHICH IMPROVES AFTER BRONCHODILATOR THERAPY. THE RESULTS WERE CONSISTENT WITH BRONCHIAL ASTHMA. IN HIS CASE MOST LIKELY BRONCHIAL ASTHMA IS RELATED TO EXERCISE AND, UNSPECIFIED TRIGGERS. AT PRESENT IT IS WELL CONTROLLED. Code(s): J45.909 - Unspecified asthma, uncomplicated Category: Medical Plan: SPIRIVA RESPIMAT 2.5 MG 2 INHALATIONS DAILY IN THE MORNING. SYMBICORT 160-4.5 1 OR 2 PUFFS TWICE A DAY ONLY P.R.N.. ALBUTEROL HFA 2 PUFFS Q 4-6 HOURS P.R.N. WHEN HE IS OUTDOORS AND DOING SOME PHYSICAL EXERTION Coding Level of Care Code Est Pt Level 3 (25997) Diagnoses Asthma J45.909
[2025-04-20 10:57] VITALS: BP 110/80; PULSE 81; O2SAT 98; BMI 30.9
--- OUTSIDE RECORDS SUMMARY | 2025-04-20 11:53 | XMS_ITS | Encounter Summary ---
Author Organization [facility] Address [address] [place] [phone] Phone Care Team Providers Care Reference Librarian Name Role Phone Pcp, Unknown Primary Care Provider Bryce Sharif MD Primary Care Provid er Encounter Details Date Type Department Care Team (Late st Contact Info) Description 10/16/2023 Procedure Pass [address] [place], [place] [address] Social History Tobacco Use Types Packs/Day Years Used Date Smoking Tobacco: Never Assessed Sex and Gender Information Value Date Recorded Sex Assigned at Not on file Legal Sex Male 10:26 PM EDT Gender Identity Not on file Sexual Orientation Not on file documented as of this encounter Plan of Treatment Upcoming Encounters Date Type Department Care Team (Latest Contact Info) Description 04/22/2025 2:15 PM EDT Pre-Admission Testing [facility] Pre-Procedure Evaluation Department Please [place] [phone] Angelo Medina MD [address] [place] [phone] [email or web address] 05/06/2025 Procedure Pass [facility] PERIOPERATIVE DEPT [address] [place] [phone] 05/06/2025 7:45 AM EDT Hospital Encounter [facility] PERIOPER[facility]IVE DEPT [address] [place] [phone] Angelo Medina MD [address] [place] [phone] [email or web address] 05/06/2025 7:45 AM EDT - 05/06/2025 9:31 AM EDT Surgery [facility]IVE [facility] [address] [place] [phone] Angelo Medina MD [address] [place] [phone] [email or web address] 05/24/2025 10:00 AM EDT Telephone [facility] Neurosurgery [address] [place] [address], [address] Floor, [address] [place] [address] Angelo Medina MD [address] [place] [phone] [email or web address] Scheduled Procedures Name Priority Associated Diagnoses Date/Ti me SCLEROTHERAPY Vascular malformation 05/06/2025 7:45 AM EDT documented as of this encounter Visit Diagnoses Not on filedocumented in this encounter Care Teams Reference Librarian Relationship Specialty Start Date End Date Pcp, Unknown PCP - General 10/22/23 10/30/23 Bryce Brownlee MD [address] [place] [phone] PCP - General Internal Medicine 10/31/23 documented as of this encounter Additional Source Comments The information contained in this document represents components of the legal health record. It is not the complete legal health record.[facility]
== END 2025-04-20 11:17 | disposition home or self-care (01) ==
LOC: HO.HPS 10:52
PROVIDERS: PCP Internal Medicine; Visit Provider Internal Medicine
DX: J45.909 Unspecified asthma, uncomplicated (principal)
CPT/HCPCS: 99213

== ENCOUNTER → 2025-04-20 10:52 | Outpatient (BNVA) | payer OTHER, SELFPAY | PROVIDERS: PCP Internal Medicine; Visit Provider Internal Medicine | DX: R06.02 Shortness of breath (principal); J45.909 Unspecified asthma, uncomplicated | CPT/HCPCS: 99212 ==